=== PATIENT | male | born 1965 | race Caucasian/White ===

== ENCOUNTER 2017-05-10 17:41 | Emergency (ER) | payer OTHER ==
[2017-05-10] MEDS ORDERED: NA CHLORIDE 0.9% 1,000 ML ONE (19:17)
[2017-05-10] MEDS ORDERED: ONDANSETRON 4 MG/2 ML VIAL ONE (19:17)
[2017-05-10 19:22] LABS: Absolute Lymphocytes (CBC) 1.4 K/uL (0.7-4.9); Absolute Monocytes 1.1 K/uL (0.1-1.3); Absolute Neutrophil 5.2 K/uL (1.8-8.0); Basophils % 0.3 % (0-1.3); Eosinophils % 2.7 % (0-4.4); Hematocrit 45.8 % (39.6-49.0); Lymphocytes % 17.7 % (15.3-44.8); MCV 93.1 fL (80-100); MPV 7.7 fL (7.6-11.3); Monocytes % 14.3 % (3.3-12.3); RBC Red Blood Cell Count 4.92 M/uL (4.33-5.43)
[2017-05-10 19:28] LABS: Potassium 4.1 mEq/L (3.6-5.0)
--- NOTE | 2017-05-10 20:22 | ER ---
Nurse's Notes [facility] Name: Kaylie Arevalo Age: 51 yrs Sex: Male : 1965 Arrival Date: 05/10/2017 Time: 17:45 Bed 23 Private MD: Diagnosis: Gastroenteritis Presentation: 05/10 18:03 Presenting complaint: Patient states: Sinus congestion, productive cough with yellow hb sputum, body aches, N/V/D x 3 days. Transition of care: patient was not received from another setting of care. Onset of symptoms was May 08, 2017. Care prior to arrival: None. 18:03 Method Of Arrival: Ambulatory hb 18:03 Acuity: BK 3 hb Historical: - Allergies: 18:07 No Known Allergies; hb - Home Meds: 18:07 Lexapro Oral [Active]; Metformin Oral [Active]; Trulicity subcutaneous subcutaneous hb [Active]; Glipizide Oral [Active]; amlodipine oral [Active]; losartan oral oral [Active]; atorvastatin oral oral [Active]; meloxicam oral oral [Active]; carvedilol 3.125 mg oral tab [Active]; - PMHx: 18:07 Diabetes - NIDDM; Hypertension; Anxiety; hb - PSHx: 18:07 Appendectomy; leg - right; wrist - right; hb - Immunization history:: Adult Immunizations up to date. - Social history:: Smoking status: Patient/guardian denies using tobacco. Screenin:56 Abuse screen: Denies threats or abuse. Nutritional screening: No deficits noted. tl3 Tuberculosis screening: No symptoms or risk factors identified. Fall Risk None identified. Assessment: 19:56 General: Appears uncomfortable, well groomed, well developed, well nourished, Behavior tl3 is calm, cooperative, appropriate for age. Pain: Complains of pain in abdomen cramps, back cramps from vomiting. Neuro: Level of Consciousness is awake, alert, obeys commands, Oriented to person, place, time, situation, Appropriate for age. Cardiovascular: Heart tones S1 S2 present Capillary refill < 3 seconds in bilateral fingers. Respiratory: Airway is patent Trachea midline Respiratory effort is even, unlabored. GI: Reports lower abdominal pain, diarrhea. 19:56 GI: Reports vomiting, since Saturday morning at 6:30 am. : EENT: No signs and/or tl3 symptoms were reported regarding the EENT system. Derm: Skin is intact, Skin is dry, Skin is pale, Skin temperature is cool. Musculoskeletal: No signs and/or symptoms reported regarding the musculoskeletal system. 20:35 Reassessment: No changes from previously documented assessment. Patient and/or family tl3 updated on plan of care and expected duration. Pain level reassessed. Patient is alert, oriented x 3, equal unlabored respirations, skin warm/dry/pink. pt states that he is feeling better. Vital Signs: 18:03 BP 124 / 92; Pulse 101; Resp 20; Temp 98; Pulse Ox 97% on R/A; Weight 117.93 kg; Height hb 6 ft. 1 in. (185.42 cm); Pain 4/10; 20:35 BP 122 / 82; Pulse 88; Resp 16; Pulse Ox 98% on R/A; tl3 18:03 Body Mass Index 34.30 (117.93 kg, 185.42 cm) hb ED Course: 17:45 Patient arrived in ED. rg4 18:03 Triage completed. hb 18:03 Arm band placed on right wrist. hb 18:25 Adis Trivedi PA is PHCP. jr8 18:25 Deyvi Zapata MD is Attending Physician. jr8 18:31 Omayra Marsh RN is Primary Nurse. tl3 19:56 Patient has correct armband on for positive identification. Bed in low position. Call tl3 light in reach. Side rails up X 1. 19:56 No provider procedures requiring assistance completed. Initial lab(s) drawn, by ri, tl3 sent to lab. Inserted saline lock: 22 gauge in right forearm, using aseptic technique. Blood collected. 20:35 IV discontinued, intact, bleeding controlled, No redness/swelling at site. Pressure tl3 dressing applied. Administered Medications: 19:00 Drug: NS 0.9% 1000 ml Route: IV; Rate: 1000 ml; Site: right forearm; tl3 20:00 Follow up: IV Status: Completed infusion; IV Intake: 1000ml tl3 19:00 Drug: Phenergan 12.5 mg Route: IVP; Site: right forearm; tl3 20:24 Follow up: Response: No adverse reaction; Nausea is decreased tl3 Intake: 20:00 IV: 1000ml; Total: 1000ml. tl3 Outcome: 20:21 Discharge ordered by MD. badillo 20:35 Discharged to home tl3 20:35 Condition: good 20:35 Discharge instructions given to patient, Instructed on discharge instructions, medication usage, Demonstrated understanding of instructions, follow-up care, medications, Prescriptions given X 1, stressed importance of good hand washing and fluid intake 20:37 Patient left the ED. tl3 Signatures: Adis Trivedi PA PA jr8 Alem Nye, RN RN Eleanor Conner 4 Omayra Marsh, JAMES RN tl3
--- NOTE | 2017-05-10 20:22 | EDPHYS ---
Physician Documentation [facility] Name: Kaylie Arevalo Age: 51 yrs Sex: Male : 1965 Arrival Date: 05/10/2017 Time: 17:45 Bed 23 Private MD: ED Physician Deyvi Zapata HPI: 05/10 18:44 This 51 yrs old Male presents to ER via Ambulatory with complaints of Flu jr8 Symptoms. 18:44 The patient presents to the emergency department with nausea, vomiting, diarrhea. jr8 Onset: The symptoms/episode began/occurred acutely, 3 day(s) ago. Possible causes: unknown. The symptoms are aggravated by food , The symptoms are alleviated by nothing. Associated signs and symptoms: The patient has no apparent associated signs or symptoms. Severity of symptoms: At their worst the symptoms were moderate in the emergency department the symptoms are unchanged. The patient has not experienced similar symptoms in the past. The patient has not recently seen a physician. Patient stated that he has not been able to stop his n/v/d. Stated that he cannot keep fluids or food down . Historical: - Allergies: 18:07 No Known Allergies; hb - Home Meds: 18:07 Lexapro Oral [Active]; Metformin Oral [Active]; Trulicity subcutaneous subcutaneous hb [Active]; Glipizide Oral [Active]; amlodipine oral [Active]; losartan oral oral [Active]; atorvastatin oral oral [Active]; meloxicam oral oral [Active]; carvedilol 3.125 mg oral tab [Active]; - PMHx: 18:07 Diabetes - NIDDM; Hypertension; Anxiety; hb - PSHx: 18:07 Appendectomy; leg - right; wrist - right; hb - Immunization history:: Adult Immunizations up to date. - Social history:: Smoking status: Patient/guardian denies using tobacco. ROS: 18:44 Eyes: Negative for injury, pain, redness, and discharge, Neck: Negative for injury, jr8 pain, and swelling, Cardiovascular: Negative for chest pain, palpitations, and edema, Back: Negative for injury and pain, MS/Extremity: Negative for injury and deformity, Skin: Negative for injury, rash, and discoloration, Neuro: Negative for headache, weakness, numbness, tingling, and seizure. 18:44 ENT: Positive for rhinorrhea, Negative for drainage from ear(s), ear pain, sore throat, difficulty swallowing, difficulty handling secretions, hoarseness. 18:44 Respiratory: Positive for cough, Negative for dyspnea on exertion, shortness of breath, sputum production, wheezing. 18:44 Abdomen/GI: Positive for nausea, vomiting, and diarrhea, Negative for abdominal pain, abdominal distension, anorexia, dysphagia, hematemesis, black/tarry stool, rectal pain, rectal bleeding, bowel incontinence, flatulence. Exam: 18:44 Eyes: Pupils equal round and reactive to light, extra-ocular motions intact. Lids and jr8 lashes normal. Conjunctiva and sclera are non-icteric and not injected. Cornea within normal limits. Periorbital areas with no swelling, redness, or edema. ENT: Nares patent. No nasal discharge, no septal abnormalities noted. Tympanic membranes are normal and external auditory canals are clear. Oropharynx with no redness, swelling, or masses, exudates, or evidence of obstruction, uvula midline. Mucous membranes moist. Neck: Trachea midline, no thyromegaly or masses palpated, and no cervical lymphadenopathy. Supple, full range of motion without nuchal rigidity, or vertebral point tenderness. No Meningismus. Cardiovascular: Regular rate and rhythm with a normal S1 and S2. No gallops, murmurs, or rubs. Normal PMI, no JVD. No pulse deficits. Respiratory: Lungs have equal breath sounds bilaterally, clear to auscultation and percussion. No rales, rhonchi or wheezes noted. No increased work of breathing, no retractions or nasal flaring. Abdomen/GI: Soft, non-tender, with normal bowel sounds. No distension or tympany. No guarding or rebound. No evidence of tenderness throughout. Back: No spinal tenderness. No costovertebral tenderness. Full range of motion. Skin: Warm, dry with normal turgor. Normal color with no rashes, no lesions, and no evidence of cellulitis. MS/ Extremity: Pulses equal, no cyanosis. Neurovascular intact. Full, normal range of motion. Neuro: Awake and alert, GCS 15, oriented to person, place, time, and situation. Cranial nerves II-XII grossly intact. Motor strength 5/5 in all extremities. Sensory grossly intact. Cerebellar exam normal. Normal gait. Vital Signs: 18:03 BP 124 / 92; Pulse 101; Resp 20; Temp 98; Pulse Ox 97% on R/A; Weight 117.93 kg; Height hb 6 ft. 1 in. (185.42 cm); Pain 4/10; 20:35 BP 122 / 82; Pulse 88; Resp 16; Pulse Ox 98% on R/A; tl3 18:03 Body Mass Index 34.30 (117.93 kg, 185.42 cm) hb MDM: 18:25 Patient medically screened. jr8 20:20 Data reviewed: vital signs, nurses notes, lab test result(s), and as a result, I will jr8 discharge patient. Data interpreted: Pulse oximetry: on room air is 97 %. Interpretation: normal. Counseling: I had a detailed discussion with the patient and/or guardian regarding: the historical points, exam findings, and any diagnostic results supporting the discharge/admit diagnosis, lab results, the need for outpatient follow up, a family practitioner, to return to the emergency department if symptoms worsen or persist or if there are any questions or concerns that arise at home. Response to treatment: the patient's symptoms have markedly improved after treatment. 05/10 18:39 Order name: Flu; Complete Time: 19:30 8 05/10 18:41 Order name: CBC with Diff; Complete Time: 19:23 8 05/10 18:41 Order name: Basic Metabolic Panel; Complete Time: 19:30 8 05/10 18:41 Order name: IV; Complete Time: 20:24 8 05/10 18:41 Order name: Urine Dipstick-Ancillary (obtain specimen); Complete Time: 20:24 [facility] Administered Medications: 19:00 Drug: NS 0.9% 1000 ml Route: IV; Rate: 1000 ml; Site: right forearm; tl3 20:00 Follow up: IV Status: Completed infusion; IV Intake: 1000ml tl3 19:00 Drug: Phenergan 12.5 mg Route: IVP; Site: right forearm; tl3 20:24 Follow up: Response: No adverse reaction; Nausea is decreased tl3 Disposition: 05/10/17 20:21 Discharged to Home. Impression: Gastroenteritis. - Condition is Stable. - Discharge Instructions: Viral Gastroenteritis. - Prescriptions for promethazine 25 mg Oral Tablet - take 1 tablet by ORAL route every 6 hours As needed; 20 tablet. - Medication Reconciliation Form, Thank You Letter, Antibiotic Education, Prescription Opioid Use form. - Follow up: Private Physician; When: 2 - 3 days; Reason: Recheck today's complaints, Continuance of care, Re-evaluation by your physician. - Problem is new. - Symptoms have improved. Addendum: 05/12/2017 06:59 Co-signature as Attending Physician, Deyvi Zapata MD I agree with the assessment and k dr plan of care. Signatures: Dispatcher [employer] [facility] Deyvi Zapata MD MD [facility] Adis Trivedi PA PA jr8 Alem Nye, RN RN Omayra Marsh RN RN tl3
== END 2017-05-10 20:37 | disposition home or self-care (01) ==
LOC: ER 17:41
DX: K52.9 Noninfective gastroenteritis and colitis, unspecified (principal); I10 Essential (primary) hypertension; E11.9 Type 2 diabetes mellitus without complications; F41.9 Anxiety disorder, unspecified; Z79.4 Long term (current) use of insulin
CPT/HCPCS: 36415; 80048; 85025; 87804; 96361; 96374; 99284; J2405; J7030

== ENCOUNTER 2020-05-18 01:25 | Emergency (ER) | payer OTHER ==
--- OUTSIDE RECORDS SUMMARY | 2020-05-18 01:27 | XMS REPORT | Continuity of Care Document ---
:1965 Author Organization [facility] t Address [address] [place] [address] Care Team Providers Name Role Phone Buffy BUSTILLO Attending Clinician Problems This patient has no known problems. Allergies, Adverse Reactions, Alerts This patient has no known allergies or adverse reactions. Medications This patient has no known medications. Procedures This patient has no known procedures. Encounters Start End Encounter Admission Attending Care Care Encounter Source Date/Time Date/Time Type Type Clinicians Facility Department ID 2020-05-09 2020-05-09 Office ADONIS Baer [id number] 14:35:23 15:48:50 Visit Sparkle Pedraza [id number] [place]t [id number] Profangela [id number] [address] Building 2020-05-07 2020-05-07 Refill ADONIS Baer [id number] 00:00:00 00:00:00 Sparkle Pedraza [id number] [place]t [id number] Professio [phone] [address] Building Results This patient has no known results.
--- NOTE | 2020-05-18 02:17 | ER ---
Nurse's Notes [facility] Name: Kaylie Arevalo Age: 54 yrs Sex: Male : 1965 Arrival Date: 05/18/2020 Time: 01:32 Bed 19 Private MD: Diagnosis: Displaced fracture of left tibial tuberosity-tibial plateau fracture;Fall (on) (from) unspecified stairs and steps Presentation: 05/18 01:20 Chief complaint: EMS states: Fall off treadmill, left knee injury. Care prior to sf arrival: Medication(s) given: 100 mcg Fentanyl IVP. Mechanism of Injury: Fall from treadmill onto floor approximately 1.5 feet. Trauma event details: Injury occurred in the [facility], Injury occurred: in a recreational area. Injury occurred: May 18, 2020 Injury occurred at: 00:45. 01:20 Acuity: BK 2 sf 01:20 Method Of Arrival: EMS: [facility] sf 01:20 Coronavirus screen: Client denies travel out of the [place] in the last 14 days. At this sf time, the client does not indicate any symptoms associated with coronavirus-19. Ebola Screen: Patient negative for fever greater than or equal to 101.5 degrees Fahrenheit, and additional compatible Ebola Virus Disease symptoms Patient denies exposure to infectious person. Patient denies travel to an Ebola-affected area in the 21 days before illness onset. No symptoms or risks identified at this time. Initial Sepsis Screen: Does the patient meet any 2 criteria? No. Patient's initial sepsis screen is negative. Does the patient have a suspected source of infection? No. Patient's initial sepsis screen is negative. Risk Assessment: Do you want to hurt yourself or someone else?. Onset of symptoms was May 18, 2020. Trauma Activation: Alert Physician: ED Physician; Name: Seth; Notified At: 01:20; Arrived At: 01:48 Physician: General Surgeon; Name: N/A; Notified At: 01:20; Arrived At: N/A Physician: Radiology; Name: ; Notified At: 01:20; Arrived At: 01:57 Physician: Respiratory; Name: ; Notified At: 01:20; Arrived At: Specialty not needed Physician: Jos; Name: ; Notified At: 01:20; Arrived At: Specialty not needed Historical: - Allergies: 01:50 No Known Allergies; sf - Home Meds: 01:50 metformin 1,000 mg oral tab 1 tab 2 times per day [Active]; Nifedipine ER Oral 30 mg sf twice a day [Active]; Semaglutide 1 mg per week [Active]; Farxiga 5 mg oral tab 1 tab once daily [Active]; carvedilol 25 mg oral tab 1 tab 2 times per day [Active]; trazodone 50 mg Oral tab 1 tab nightly [Active]; atorvastatin 80 mg oral tab 1 tab nightly [Active]; Lexapro 20 mg oral tab 1 tab once daily [Active]; Fioricet Oral 1 tab as needed [Active]; losartan 100 mg oral tab 1 tab once daily [Active]; hydralazine 25 mg Oral tab 50 mg 2 times per day [Active]; - PMHx: 01:50 Anxiety; Diabetes - NIDDM; Hypertension; High Cholesterol; sf - Immunization history: Last tetanus immunization: - up to date. - Family history:: not pertinent. - Social history:: Smoking status: Patient/guardian denies using tobacco. - Social history: Lives with family Speaks fluent [place]. Denies using street drugs, IV drugs, tobacco products, alcohol. Screenin:20 Abuse screen: Denies threats or abuse. Denies injuries from another. Nutritional sf screening: No deficits noted. Tuberculosis screening: No symptoms or risk factors identified. Never had TB. Possible symptoms: None Risk factors: None. Fall risk At risk due to injury, Intervention for positive screen: ED Physician notified, instructed to call for assist when getting up, side rails up. Exposure risk/Travel Screening: None identified. 01:20 Fall Risk Fall in past 12 months (25 points). No secondary diagnosis (0 pts). IV access sf (20 points). Ambulatory Aid- None/Bed Rest/Nurse Assist (0 pts). Gait- Impaired (20 pts.). Mental Status- Oriented to own ability (0 pts). Total Garcia Fall Scale indicates High Risk Score (45 or more points). Fall prevention measures have been instituted. Side Rails Up X 2 Placed Close to Nursing Station. Primary Survey: 01:20 NO uncontrolled hemorrhage observed. A: The patient is alert. Airway: patent. sf Breathing/Chest: Respiratory pattern: regular, Respiratory effort: spontaneous, unlabored, Breath sounds: clear, Chest inspection: symmetrical rise and fall of the chest. Circulation: Pulses: palpable left posterior tibial artery and left dorsalis pedis artery. Skin color: pink. Disability Alert. Exposure/Environment: All clothing and personal items were removed. Forensic evidence collection is not deemed to be indicated at this time. Items placed in patient belonging bag. There is no evidence of uncontrolled external bleeding. Obvious injury(ies) are noted at this time: left knee A warming method has been applied: A warm blanket has been provided to the patient. 02:00 Reassessment Airway Airway Patent Breathing/Chest Respiratory pattern Regular sf Respiratory effort Spontaneous Unlabored Breath sounds Clear Chest inspection Symmetrical Circulation Pulses Palpable Color [place] Disability Alert. Secondary Survey: 01:20 HEENT: No deficits noted. Gastrointestinal: No deficits noted. : No deficits noted. sf Musculoskeletal: Circulation, motion, and sensation intact. Capillary refill < 3 seconds, toes. Bony deformity noted of left knee Swelling present in left knee. Assessment: 01:20 General: Appears uncomfortable, Behavior is calm, cooperative. Pain: Complains of pain sf in left knee Pain currently is 10 out of 10 on a pain scale. Neuro: No deficits noted. Level of Consciousness is awake, alert, Oriented to person, place, time, situation. EENT: No deficits noted. No signs and/or symptoms were reported regarding the EENT system. Cardiovascular: No deficits noted. Capillary refill < 3 seconds toes Pulses are palpable in left posterior tibial artery and left dorsalis pedis artery. Respiratory: No deficits noted. Airway is patent Respiratory effort is even, unlabored, Respiratory pattern is regular, symmetrical. GI: No deficits noted. No signs and/or symptoms were reported involving the gastrointestinal system. : No deficits noted. No signs and/or symptoms were reported regarding the genitourinary system. Derm: Skin is diaphoretic, (post workout). Musculoskeletal: Circulation, motion, and sensation intact. Capillary refill < 3 seconds, toes. Bony deformity noted of left knee Swelling present in left knee Tenderness present in left knee Reports pain in left knee Denies numbness in, left leg. Vital Signs: 01:24 BP 138 / 89; Pulse 90; Resp 22; Temp 97.2; Pulse Ox 98% ; Weight 109.77 kg; Height 6 sf ft. 1 in. (185.42 cm); Pain 10/10; 01:30 BP 135 / 79; Pulse 94; Resp 20; Pulse Ox 96% ; sf 01:45 BP 154 / 81; Pulse 91; Resp 18; Pulse Ox 97% ; sf 02:00 BP 140 / 71; Pulse 87; Resp 18; Pulse Ox 97% ; sf 02:45 BP 146 / 89; Pulse 83; Resp 16; Pulse Ox 96% ; sf 01:24 Body Mass Index 31.93 (109.77 kg, 185.42 cm) sf Kelsey Coma Score: 01:24 Eye Response: spontaneous(4). Verbal Response: oriented(5). Motor Response: obeys sf commands(6). Total: 15. Trauma Score (Adult): 01:24 Eye Response: spontaneous(1); Verbal Response: oriented(1); Motor Response: obeys sf commands(2); Systolic BP: > 89 mm Hg(4); Respiratory Rate: 10 to 29 per min(4); Kelsey Score: 15; Trauma Score: 12 ED Course: 01:20 Patient maintains SpO2 saturation greater than 95% on room air. sf 01:20 Maintain EMS IV. Dressing intact. Good blood return noted. Site clean \T\ dry. Gauge \T\ sf site: 18 GA right AC. 01:20 Thermoregulation: warm blanket given to patient. sf 01:20 Patient has correct armband on for positive identification. Placed in gown. Bed in low sf position. Call light in reach. Side rails up X2. Patient maintains SpO2 saturation greater than 95% on room air. 01:20 Arm band placed on. Affected limb iced. sf 01:32 Patient arrived in ED. mw2 01:35 Luis Benitez RN is Primary Nurse. sf 01:35 Wound care: ice pack applied. sf 01:40 Triage completed. sf 01:44 Isaiah Ann MD is Attending Physician. lea 01:57 X-ray(s) taken. sf 02:01 Knee Left 3 View XRAY Sent. sf 02:13 Mir Bernard MD is Referral Physician. lea 02:21 Knee Left 3 View XRAY In Process Unspecified. EDMS 03:02 No provider procedures requiring assistance completed. IV discontinued, intact, sf bleeding controlled, No redness/swelling at site. Pressure dressing applied. Crutch training done. Knee immobilizer applied on left knee. Administered Medications: 02:15 Drug: NS 0.9% 500 ml Route: IV; Rate: bolus; Site: right antecubital; sf 03:02 Follow up: IV Status: Completed infusion; IV Intake: 500ml sf 02:15 Drug: TORadol 30 mg Route: IVP; Site: right antecubital; sf 02:42 Follow up: Response: No adverse reaction sf 02:15 Drug: morphine 4 mg Route: IVP; Site: right antecubital; sf 02:42 Follow up: Response: No adverse reaction sf 02:15 Drug: Zofran (Ondansetron) 4 mg Route: IVP; Site: right antecubital; sf 02:42 Follow up: Response: No adverse reaction sf Intake: 01:24 PO: 0ml; Total: 0ml. sf 03:02 IV: 500ml; Total: 500ml. sf Outcome: 02:16 Discharge ordered by . lea 03:03 Discharged to home ambulatory, with crutches. sf 03:03 Condition: stable 03:03 Discharge instructions given to patient, Instructed on discharge instructions, follow up and referral plans. medication usage, crutch walking, Demonstrated understanding of instructions, follow-up care, medications, crutch walking, Prescriptions given X 2. 03:03 Patient's length of stay was not longer than 2 hours. sf 03:03 Patient left the ED. sf Signatures: Dispatcher [employer] EDMS Isaiah Ann MD MD cha [place], MyKena mw2 Luis Benitez RN RN sf Corrections: (The following items were deleted from the chart) 02:03 01:20 Trauma Activation: Alert; ED Physician Seth notified at 01:20; sf General Surgeon N/A notified at 01:20, arrived at N/A; Radiology notified at 01:20; Respiratory notified at 01:20; Lab notified at 01:20 sf
--- NOTE | 2020-05-18 02:17 | EDPHYS ---
Physician Documentation [facility] Name: Kaylie Arevalo Age: 54 yrs Sex: Male : 1965 Arrival Date: 05/18/2020 Time: 01:32 Bed 19 Private MD: [facility]IC[facility] Physician Isaiah Ann HPI: 05/18 01:49 This 54 yrs old Male presents to ER via EMS with complaints of left knee. lea 01:49 This 54 yrs old Male presents to ER via EMS with complaints of left knee lea pain, fall off treadmill. 01:49 The patient presents with decreased range of motion, pain, swelling, tenderness. The lea complaints affect the left knee. Context: The problem was sustained at a sports field or court. Onset: The symptoms/episode began/occurred just prior to arrival. Modifying factors: The symptoms are alleviated by elevating leg, remaining still, the symptoms are aggravated by movement, weight bearing, bending knee. Associated signs and symptoms: The patient has no apparent associated signs or symptoms. Treatment prior to arrival includes: elevation of the extremity, icing the affected extremity. Severity of symptoms: At their worst the symptoms were severe, in the emergency department the symptoms have improved, moderately. The patient has not experienced similar symptoms in the past. Historical: - Allergies: 01:50 No Known Allergies; sf - Home Meds: 01:50 metformin 1,000 mg oral tab 1 tab 2 times per day [Active]; Nifedipine ER Oral 30 mg sf twice a day [Active]; Semaglutide 1 mg per week [Active]; Farxiga 5 mg oral tab 1 tab once daily [Active]; carvedilol 25 mg oral tab 1 tab 2 times per day [Active]; trazodone 50 mg Oral tab 1 tab nightly [Active]; atorvastatin 80 mg oral tab 1 tab nightly [Active]; Lexapro 20 mg oral tab 1 tab once daily [Active]; Fioricet Oral 1 tab as needed [Active]; losartan 100 mg oral tab 1 tab once daily [Active]; hydralazine 25 mg Oral tab 50 mg 2 times per day [Active]; - PMHx: 01:50 Anxiety; Diabetes - NIDDM; Hypertension; High Cholesterol; sf - Immunization history: Last tetanus immunization: - up to date. - Family history:: not pertinent. - Social history:: Smoking status: Patient/guardian denies using tobacco. - Social history: Lives with family Speaks fluent [place]. Denies using street drugs, IV drugs, tobacco products, alcohol. ROS: 01:49 Constitutional: Negative for fever, chills, and weight loss, Eyes: Negative for injury, lea pain, redness, and discharge, ENT: Negative for injury, pain, and discharge, Neck: Negative for injury, pain, and swelling, Cardiovascular: Negative for chest pain, palpitations, and edema, Respiratory: Negative for shortness of breath, cough, wheezing, and pleuritic chest pain, Abdomen/GI: Negative for abdominal pain, nausea, vomiting, diarrhea, and constipation, Back: Negative for injury and pain, : Negative for injury, bleeding, discharge, and swelling, Skin: Negative for injury, rash, and discoloration, Neuro: Negative for headache, weakness, numbness, tingling, and seizure, Psych: Negative for depression, anxiety, suicide ideation, homicidal ideation, and hallucinations, Allergy/Immunology: Negative for hives, rash, and allergies, Endocrine: Negative for neck swelling, polydipsia, polyuria, polyphagia, and marked weight changes, Hematologic/Lymphatic: Negative for swollen nodes, abnormal bleeding, and unusual bruising. 01:49 MS/extremity: Positive for decreased range of motion, pain, swelling, tenderness, of the left knee. Exam: 01:49 Constitutional: This is a well developed, well nourished patient who is awake, alert, lea and in no acute distress. Head/Face: Normocephalic, atraumatic. Eyes: Pupils equal round and reactive to light, extra-ocular motions intact. Lids and lashes normal. Conjunctiva and sclera are non-icteric and not injected. Cornea within normal limits. Periorbital areas with no swelling, redness, or edema. ENT: Nares patent. No nasal discharge, no septal abnormalities noted. Tympanic membranes are normal and external auditory canals are clear. Oropharynx with no redness, swelling, or masses, exudates, or evidence of obstruction, uvula midline. Mucous membranes moist. Neck: Trachea midline, no thyromegaly or masses palpated, and no cervical lymphadenopathy. Supple, full range of motion without nuchal rigidity, or vertebral point tenderness. No Meningismus. Chest/axilla: Normal chest wall appearance and motion. Nontender with no deformity. No lesions are appreciated. Cardiovascular: Regular rate and rhythm with a normal S1 and S2. No gallops, murmurs, or rubs. Normal PMI, no JVD. No pulse deficits. Respiratory: Lungs have equal breath sounds bilaterally, clear to auscultation and percussion. No rales, rhonchi or wheezes noted. No increased work of breathing, no retractions or nasal flaring. Abdomen/GI: Soft, non-tender, with normal bowel sounds. No distension or tympany. No guarding or rebound. No evidence of tenderness throughout. Back: No spinal tenderness. No costovertebral tenderness. Full range of motion. Male : Normal genitalia with no discharge or lesions. Skin: Warm, dry with normal turgor. Normal color with no rashes, no lesions, and no evidence of cellulitis. Neuro: Awake and alert, GCS 15, oriented to person, place, time, and situation. Cranial nerves II-XII grossly intact. Motor strength 5/5 in all extremities. Sensory grossly intact. Cerebellar exam normal. Normal gait. Psych: Awake, alert, with orientation to person, place and time. Behavior, mood, and affect are within normal limits. 01:49 Musculoskeletal/extremity: Extremities: decreased ROM, pain, swelling, tenderness, ROM: limited active range of motion due to pain, limited passive range of motion due to pain, Circulation is intact in all extremities. Sensation intact. Compartment Syndrome exam of affected extremity: is normal. DVT Exam: pain, swelling, that is moderate, of the left leg, of the left knee. Vital Signs: 01:24 BP 138 / 89; Pulse 90; Resp 22; Temp 97.2; Pulse Ox 98% ; Weight 109.77 kg; Height 6 sf ft. 1 in. (185.42 cm); Pain 10/10; 01:30 BP 135 / 79; Pulse 94; Resp 20; Pulse Ox 96% ; sf 01:45 BP 154 / 81; Pulse 91; Resp 18; Pulse Ox 97% ; sf 02:00 BP 140 / 71; Pulse 87; Resp 18; Pulse Ox 97% ; sf 02:45 BP 146 / 89; Pulse 83; Resp 16; Pulse Ox 96% ; sf 01:24 Body Mass Index 31.93 (109.77 kg, 185.42 cm) sf [place] Coma Score: 01:24 Eye Response: spontaneous(4). Verbal Response: oriented(5). Motor Response: obeys sf commands(6). Total: 15. Trauma Score (Adult): 01:24 Eye Response: spontaneous(1); Verbal Response: oriented(1); Motor Response: obeys sf commands(2); Systolic BP: > 89 mm Hg(4); Respiratory Rate: 10 to 29 per min(4); [place] Score: 15; Trauma Score: 12 MDM: 01:[address] [facility] [place] [facility] 01:55 Differential diagnosis: closed fracture, contusion, tendonitis. Data reviewed: vital lea signs, nurses notes, radiologic studies, plain films. Data interpreted: patient monitor: not applicable for this patient encounter. rate is 85 beats/min, rhythm is regular. Test interpretation: by ED physician or midlevel provider: plain radiologic studies. Counseling: I had a detailed discussion with the patient and/or guardian regarding: the historical points, exam findings, and any diagnostic results supporting the discharge/admit diagnosis, lab results, radiology results, the need for outpatient follow up, for definitive care, a orthopedic surgeon. 05/18 01:49 Order name: Knee Left [address] [facility] [place] 05/18 01:49 Order name: Knee Immobilizer; Complete Time: 03:02 [facility] 05/18 01:49 Order name: Crutches; Complete Time: 03:02 [facility] 05/18 01:49 Order name: Ice pack; Complete Time: 02:01 [facility] 05/18 01:49 Order name: IV Saline Lock - Large Bore; Complete Time: 02:01 [facility] Administered Medications: 02:15 Drug: NS 0.9% 500 ml Route: IV; Rate: bolus; Site: right antecubital; sf 03:02 Follow up: IV Status: Completed infusion; IV Intake: 500ml sf 02:15 Drug: TORadol 30 mg Route: IVP; Site: right antecubital; sf 02:42 Follow up: Response: No adverse reaction sf 02:15 Drug: morphine 4 mg Route: IVP; Site: right antecubital; sf 02:42 Follow up: Response: No adverse reaction sf 02:15 Drug: Zofran (Ondansetron) 4 mg Route: IVP; Site: right antecubital; sf 02:42 Follow up: Response: No adverse reaction sf Disposition: 05/18/20 02:16 Discharged to Home. Impression: Displaced fracture of left tibial tuberosity - tibial plateau fracture, Fall (on) (from) unspecified stairs and steps. - Condition is Stable. - Discharge Instructions: Fall Prevention in the Home, Hypertension, Nondisplaced Tibial Plateau Fracture, Hypertension, [id number], Fall Prevention in the Home, [id number], Tibial Fracture, Adult, [id number], Type 2 Diabetes Mellitus, Self Care, Adult, [id number]. - Prescriptions for Ibuprofen 600 mg Oral Tablet - take 1 tablet by ORAL route every 6 hours As needed take with food; 20 tablet. Tylenol- Codeine #3 300-30 mg Oral Tablet - take 2 tablet by ORAL route every 4-6 hours As needed; 30 tablet. - Medication Reconciliation Form, Thank You Letter, Antibiotic Education, Prescription Opioid Use form. - Follow up: Mir Bernard MD; When: 1 - 2 days; Reason: Recheck today's complaints, Re-evaluation by your physician. - Problem is new. - Symptoms have improved. Signatures: Dispatcher [employer] EDIsaiah Rey MD MD cha Fitzpatrick, Steven RN RN sf Corrections: (The following items were deleted from the chart) 03:03 02:16 05/18/2020 02:16 Discharged to Home. Impression: Displaced fracture of left sf tibial tuberosity - tibial plateau fracture; Fall (on) (from) unspecified stairs and steps. Condition is Stable. Forms are Medication Reconciliation Form, Thank You Letter, Antibiotic Education, Prescription Opioid Use. Follow up: Mir Bernard; When: 1 - 2 days; Reason: Recheck today's complaints, Re-evaluation by your physician. Problem is new. Symptoms have improved. lea
[2020-05-18] MEDS ORDERED: ONDANSETRON 4 MG/2 ML VIAL ONE (02:28)
[2020-05-18] MEDS ORDERED: KETOROLAC 30 MG/ML INJ ONE (02:28)
[2020-05-18] MEDS ORDERED: MORPHINE 4 MG/ML SYR ONE (02:28)
[2020-05-18] MEDS ORDERED: NA CHLORIDE 0.9% 500 ML ONE (02:29)
[2020-05-18 03:27] VITALS: O2SAT 97
[2020-05-18 03:29] VITALS: BP 140/71
--- NOTE | 2020-05-18 07:49 | RAD REPORT ---
EXAM DESCRIPTION: RAD - Knee Left 3 View - 05/18/2020 2:21 am CLINICAL HISTORY: Left knee pain status post injury FINDINGS: Mildly depressed fracture lateral tibial plateau extends 6 centimeters inferiorly. Oblique lucency is present within the medial tibial plateau may represent an additional nondisplaced fracture. No dislocation
== END 2020-05-18 03:03 | disposition home or self-care (01) ==
LOC: ER 01:25
PROC: 2W3MX1Z Immobilization of Left Lower Extremity using Splint (ICD-10-PCS; principal; 2020-05-18)
DX: S82.152A Displaced fracture of left tibial tuberosity, initial encounter for closed fracture (principal); W31.89XA Contact with other specified machinery, initial encounter; Y93.A1 Activity, exercise machines primarily for cardiorespiratory conditioning; Y92.9 Unspecified place or not applicable; I10 Essential (primary) hypertension; E11.9 Type 2 diabetes mellitus without complications; F41.9 Anxiety disorder, unspecified
CPT/HCPCS: 73562; 29505; J7040; J2405; 96361; 96374; 96375; 99284; G0390

== ENCOUNTER 2021-09-30 15:36 | Emergency (ER) | payer BC, OTHER ==
--- OUTSIDE RECORDS SUMMARY | 2021-09-30 15:39 | XMS REPORT | Continuity of Care Document ---
:1965 Author Organization [facility] t Address [address] [place] [address] Care Team Providers Name Role Phone Asked, No Pcp Primary Care Physician Unavailable Sparkle Baer MD Attending Clinician Braulio Orozco Attending Clinician Unavailable DIANA SIDHU Attending Clinician Unavailable Raphael Manrique Attending Clinician Unavailable Maria Teresa Ross RN M Attending Clinician Karri Gonzalez MD Attending Clinician Guera Diehl MD Attending Clinician Jonathan Field Attending Clinician Huebr Gonzales Attending Clinician Physician, No Primary or Family Admitting Clinician Unavaila ble UNDEFINED Admitting Clinician Unavailable Raphael Manrique Admitting Clinician Unavailable Guera Diehl MD Admitting Clinician Payers Payer Name Policy Type Policy Number Effective Date Expiration Date S ource Problems Condition Condition Condition Status Onset Resolution Last Treating Co mments Source Name Details Category Date Date Treatment Clinician Date PNA PNA Disease Active Univers (pneumonia (pneumonia 7-11 it y of ) ) 00:00: [place] [facility] Hypertensi Hypertensi Disease Active U nivers ve urgency ve urgency 1-27 it y of 00:00: [place] [facility] Dyslipidem Dyslipidem Disease Active U nivers ia ia 3-15 ity of 00:00: [place] [facility] Atypical Atypical Disease Active Unive rs chest pain chest pain 3-14 it y of 00:00: [place] [facility] 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 2 ed type 2 4- ity of diabetes diabetes 00:00: [place] mellitus mellitus 00 Medica l with with 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 y Hypogonadi Hypogonadi Disease Active U nivers sm in male sm in male 9-12 it y of 00:00: [place] [facility] Cushingoid Cushingoid Disease Active U nivers facies facies 9-12 ity of 00:00: [place] [facility] Chest pain Chest pain Disease Active U nivers of of 3-29 ity of uncertain uncertain 00:00[place] etiology 00 Medica [place] Branch Obesity Obesity Disease Active Univers 3-29 ity of 00:00: [place] [facility] TERRIE on TERRIE on Disease Active Univers CPAP CPAP 3-29 ity of 00:00: [place] [facility] Diabetes Diabetes Disease Active Overview: Un thor mellitus mellitus 1-09 Formattin ity of type 2, type 2, 00:00: g of this [place] uncontroll uncontroll 00 note Me dical ed, ed, might be Branch without without different complicati complicati from the ons ons original. 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 Essential Essential Disease Active Uni vers hypertensi hypertensi 1-09 it y of on on 00:00: [place] [facility] HLD HLD Disease Active Univers (hyperlipi (hyperlipi 1-09 it y of demia) demia) 00:00: [place] [facility] Allergies, Adverse Reactions, Alerts Allergy Allergy Status Severity Reaction(s) Onset Inactive Treating Comm ents Source Name Type Date Date Clinician No Known DA Active U [facility] Allergie 09-01 Clear s 00:00: [place] 00 [facility] No Known DA Active U [facility] Allergie 09-01 Clear s 00:00: [place] 00 [facility] Social History Social Habit Start Date Stop Date Quantity Comments Source Alcohol intake 2021-03-10 2021-03-10 Current University of 00:00:00 00:00:00 non-drinker of [facility] alcohol Branch (finding) Tobacco use and 2018-11-05 2018-11-05 Current user Univers ity of exposure 00:00:00 00:00:00 [facility] Tobacco Comment 2015-05-10 2015-05-10 cigars Universit y of 00:00:00 00:00:00 [facility] Sex Ass[birth year] At [birth year] [facility] 00:00:00 00:00:00 Smoking Status Start Date Stop Date Source Tobacco smoking [facility] consumption unknown Former smoker 2018-11-05 00:00:00 2018-11-05 [facility] [place] 00:00:00 [facility] Branch Medications Ordered Filled Start Stop Current Ordering Indication Dosage Frequency Signature Comments Components Source Medication Medication Date Date Medication? Clinician (SIG) Name Name SUNSHINE Montes Yes [id number] TAKE ONE Univers mg tablet 5-30 TABLET BY ity o f 00:00: MOUTH DAILY Medical Branch FREESTYLE Yes 1{each} Apply 1 Un thor LAZ 14 3-13 Each to ity of DAY SENSOR 00:00: skin every [place] Kit 00 14 Medical (fourteen) Branch days. Dx E11.29 METFORMIN 2020-02 Yes [id number] TAKE ONE Univers 1,000 mg 1-22 TABLET BY ity of tablet 00:00: MOUTH 00 TWICE A Medical DAY WITH Branch MEALS FENOFIBRATE 2020-02 Yes [id number] TAKE ONE Univers 160 mg 1-17 TABLET BY ity of tablet 00:00: MOUTH DAILY Medical Branch Blood 2020-02 Yes [id number] Use as Univers Pressure 0-04 directed ity of Monitor Kit 00:00: Medical Branch dapaglifloz 2020-02- No [id number] 10mg Take 1 Univers in 0-04 05-30 tablet by ity of (FARXIGA) 00:00: 00:00 mouth [place] 10 mg 00 :00 daily. Medical tablet Branch OZEMPIC 1 Yes DIAL AND Univ ers mg/dose (4 9-23 INJECT ity of mg/3 mL) 00:00: UNDER THE [place] PnIj 00 SKIN 1 MG Medical WEEKLY Branch escitalopra Yes Take by Uni vers m oxalate 7-20 mouth ity of (LEXAPRO 17:24: daily. [place] ORAL) 14 Medical Branch FREESTYLE Yes USE TO Univer s LAZ 14 4-22 MONITOR ity of DAY READER 00:00: BLOOD [facility] 00 GLUCOSE 3 Medical TO 4 TIMES Branch DAILY pentazocine Yes [id number] 1{tbl} Take 1 Un thor -naloxone 4-07 tablet by ity o f 50-0.5 mg 00:00: mouth [place] tablet 00 every 4 Medical (four) Branch hours as needed for Pain. Indication s: acute pain losartan Yes [id number] 50mg Take 0.5 Univers 100 mg 1-29 tablets by ity of tablet 00:00: mouth [place] 00 daily. Medical Branch hydrALAZINE Yes [id number] 50mg Take 2 Univers 25 mg 1-29 tablets by ity of tablet 00:00: mouth 2 [place] 00 (two) Medical times Branch daily. atorvastati 2019-02 Yes [id number] 80mg Take 1 Univers n 80 mg 2-03 tablet by ity of tablet 00:00: mouth at [place] [address] bedtime. Medical Branch carvedilol Yes [id number] 12.5mg Take 0.5 Univers 25 mg 1-08 tablets by ity of tablet 00:00: mouth 2 [place] [address] (two) Medical times Branch daily with meals. Immunizations Ordered Filled Immunization Date Status Comments [facility] Immunization Name Name Influenza Virus 2018-01-13 Completed Universit y of Vaccine [place] .5 mL 00:00:00 [facility] IM 6+ MO Branch Procedures Procedure Date / Time Performed Performing Clinician Alex e XR CHEST 2 VW 2020-11-01 16:28:00 Diana Sidhu [facility] Plan of Care Planned Activity Planned Date Details Comments Source Future Scheduled 2021-03-14 COVID-19 VACCINE (1) Met [facility] Test 19:08:41 [code = COVID-19 VACCINE (1)] Future Scheduled 2021-03-14 Hepatitis C screening [facility] Test 19:08:41 (procedure) [code = 700232489] Future Scheduled 2021-03-14 COLONOSCOPY SCREENING [facility] Test 19:08:41 [code = COLONOSCOPY SCREENING] Future Scheduled 2021-03-14 SHINGLES VACCINES [facility] Test 19:08:41 (#1) [code = SHINGLES VACCINES (#1)] Future Scheduled 2021-03-14 INFLUENZA VACCINE [facility] Test 19:08:41 [code = INFLUENZA VACCINE] Encounters Start End Encounter Admission Attending Care Care Encounter Source Date/Time Date/Time Type Type Clinicians Facility Department ID 2021-07-10 2021-07-10 Eric Baer [facility] [id number] [facility] 00:00:00 00:00:00 [place] 350.1.13.10 it y of [place] 4.2.7.2.686 Javi as DIANA?BLEA [id number] [address] MEDICAL OFFICE BUILDING 2021-03-15 2021-03-15 Outpatient Orozco, HCACL LABO [id number] [facility] 02:06:00 02:06:00 Braulio Sesay [facility] 2021-03-14 2021-03-14 Emergency EM Orozco, HCAPM АНДРЕЙ [id number] [facility] 12:29:00 17:30:00 Braulio Marquez [facility] 2020-11-01 2020-11-01 [facility] 1.2.840.1 [id number] [place] 00:00:00 00:00:00 Encounter DIANA [id number] [address] .3.129171 .8 2020-11-01 2020-11-01 Travel 1.2.840.1 1.2.918.808 [id number] [facility] 00:00:00 00:00:[address] 3.430.2.7 0.2.7.3.698 Ho spita .3.752949 084.8 l .8 2020-11-01 2020-11-01 Transcribe Thea, 1.2.840.1 [id number] Methodi 00:00:00 00:00:00 Orders Diana [place] [address]19.1.[address] 3.430.2.7 Hospit a .3.874372 l .8 2020-09-01 2020-09-11 Inpatient EM Burton HCAPM INTE.02 [id number] [facility] 19:41:00 16:55:00 Ol[place] 78 [facility] 2020-09-01 2020-09-01 Outpatient CORAZON ManriqueCL LABO [id number] [facility] 20:56:00 20:56:00 Oladipo 12 [facility] 2020-08-31 2020-08-31 Transition Candice Ross 1.2.840.114 [id number] 00:00:00 00:00:00 of Care Maria Teresa Malave [address] 4.2.7.2.686 [id number] 2020-08-21 2020-08-30 Hospital Karri Gonzalez [facility] 1.2.840.1 14 [id number] 17:15:00 17:23:00 Encounter Guera Diehl [facility] 350.1.13.10 League 4.2.7.2.686 [facility] [id number] [address] ([facility]) 2020-07-29 2020-07-29 Telephone Field, [facility] 1.2.036.481 [id number] 00:00:00 00:00:00 Jonathan PANCHAL 350.1.13.10 CARE 4.2.7.2.686 PAVILLION [id number] 2020-07-02 2020-07-02 Eric Baer [facility] 1.2.840.114 [id number] 00:00:00 00:00:00 Sparkle Pedraza 350.1.13.10 [place] 4.2.7.2.686 Professio [id number] [facility] 220 [facility] 2020-06-29 2020-06-29 [facility] 1.2.840.114 [id number] 16:30:48 23:59:00 Encounter Huber Fraga 350.1.13.10 Surgical 4.2.7.2.686 Specialti [phone] es [address] [place] 2020-06-29 2020-06-29 Office [facility] 1.2.840.114 [id number] 16:13:37 16:28:37 Visit Huber Fraga 350.1.13.10 Surgical 4.2.7.2.686 Specialti [id number] es 198 [place] 2020-06-29 2020-06-29 Letter [facility] 1.2.840.114 [id number] 00:00:00 00:00:00 (Out) Huber Fraga 350.1.13.10 Surgical 4.2.7.2.686 Specialti [id number] es 198 [place] Results Test Description Test Time Test Comments Results Result [facility] Comments - CT ABD PELVIS 2021-03-14 W/CONT 16:22:[address] [facility] : 1965 Sex: M Name: STEPHON AREVALO [facility] : 1965 Age/S: 55 / M [address] [place] Unit #: [id number] Loc: [place] [address] Phys: Braulio Orozco MD Acct: [id number] Dis Date: Status: REG ER PHONE #: [phone] Exam Date: 03/14/2021 1534 FAX #: Reason: prostatitis, failed outpt treatment EXAMS: CPT: [id number] CT ABD PELVIS W/CONT 21237 EXAMINATION: - CT ABD PELVIS W/CONT. LOCATION: B2. HISTORY: prostatitis, failed outpt treatment. COMPARISON: None. Count of previous CT and cardiac nuclear medicine studies for the past 12 months: 2. TECHNIQUE: CT abdomen and pelvis was performed with the use of IV contrast (100 mL Isovue 300). Sagittal and coronal reconstructed images were available for review. This exam was performed according to our departmental dose-optimization program, which includes automated exposure control, adjustment of the mA and/or kV according to patient size, and/or use of iterative reconstruction technique. FINDINGS: Lower chest: Mild groundglass opacities are seen in bilateral lung bases. Heart size is normal. Abdomen: 1.0 cm exophytic left renal cyst is present. The liver, gallbladder, fingers, spleen, bilateral adrenal glands, and right kidney appear within normal limits. There is no evidence of bowel obstruction. The appendix is not visualized. No pneumoperitoneum or ascites is identified. There is no mesenteric or retroperitoneal adenopathy. Pelvis: The urinary bladder appears normal. The prostate gland is normal in size. No prostatic fluid collections are identified. The left penile corpus cavernosum is asymmetrically enlarged with 7.1 x 2.1 cm area of enhancement. No inguinal adenopathy is identified. Bones/soft tissues: 2.8 cm lucency is seen at T8 with a corduroy appearance suggestive of a hemangioma. L4 limbus vertebra is noted. No acute osseous abnormality is identified. No aggressive lytic or blastic lesions are seen. IMPRESSION: PAGE 1 Signed Report (CONTINUED) Name: STEPHON AREVALO [facility] : 1965 Age/S: 55 / M [address] [facility] [place] Unit #: [id number] Loc: [place] [address] Phys: Braulio Orozco MD Acct: [id number] Dis Date: Status: REG ER PHONE #: [phone] Exam Date: 03/14/2021 7433 FAX #: Reason: prostatitis, failed outpt treatment EXAMS: CPT: [id number] CT ABD PELVIS W/CONT 92993 (Continued) Asymmetrically enlarged left penile corpus cavernosum with 7.1 x 2.1 cm region of enhancement, likely representing focal myositis in a patient with history of prostatitis. Mild groundglass opacities in bilateral lung bases consistent with an inflammatory/infectiou s process. at 1622 Reported and signed by: Jose L Garcia M.D. CC: Braulio Orozco MD Technologist:Any Naik, RT(R) CTDI: DLP: Trnscb Date/Time: 03/14/2021 (0982) [email or web address] Orig Print D/T: S: 03/14/2021 (1741) PAGE 2 Signed Report COMPREHENSIVE METABOLIC PANEL 2021-03-14 14:59:00 Test Item Value Reference Range Interpretation Comme nts SODIUM (test code = NA) 140 mmol/L 134-147 N POTASSIUM (test code = K) 4.0 mmol/L 3.4-5.0 N CHLORIDE (test code = CL) 107 mmol/L 100-108 N CARBON DIOXIDE (test code = CO2) 26 mmol/L 21-32 N ANION GAP (test code = GAP) 7.0 GAP calc 4.0-15.0 N GLUCOSE (test code = GLU) 91 MG/DL 70-110 N BLOOD UREA NITROGEN (test code = BUN) 24 MG/DL 7-18 H GLOMERULAR FILTRATION RATE (test code = GFR) 48 estGFR >60 L CREATININE (test code = CREAT) 1.6 MG/DL 0.8-1.3 H TOTAL PROTEIN (test code = PROT) 7.9 G/DL 6.4-8.2 N ALBUMIN (test code = ALB) 3.3 G/DL 3.4-5.0 L GLOBULIN (test code = GLOB) 4.6 GM/dL ALBUMIN/GLOBULIN RATIO (test code = A/G) 0.7 RATIO 1.2-2.2 L CALCIUM (test code = CA) 9.4 MG/DL 8.5-10.1 N BILIRUBIN TOTAL (test code = BILT) 0.30 MG/DL 0.2-1.2 N SGOT/AST (test code = AST) 18 Unit/L 15-37 N SGPT/ALT (test code = ALT) 33 Unit/L 12-78 N ALKALINE PHOSPHATASE TOTAL (test code = ALKP) 48 Unit/L 50-136 L CBC W/AUTO [id number] 14:32:00 Test Item Value Reference Range Interpretation Comments WHITE BLOOD CELL (test code = 9.1 K/mm3 3.5-11.0 N WBC) RED BLOOD CELL (test code = 4.51 M/mm3 4.70-6.10 L RBC) HEMOGLOBIN (test code = HGB) 14.3 G/DL 12.3-15.9 N HEMATOCRIT (test code = HCT) 42.3 % 35.8-46.7 N MEAN CELL VOLUME (test code = 93.8 Fl 86.3-98.9 N MCV) MEAN CELL HGB (test code = MCH) 31.7 pg 28.9-34.4 N MEAN CELL HGB CONCETRATION 33.8 G/DL 32.1-34.5 N (test code = MCHC) RED CELL DISTRIBUTION WIDTH 12.7 SD 11.5-14.5 N (test code = RDW) PLATELET COUNT (test code = 329 K/mm3 150-450 N PLT) MEAN PLATELET VOLUME (test code 9.10 fL 7.0-9.6 N = MPV) NEUTROPHIL % (test code = NT%) 68.7 % 40-76 N IMMATURE GRANULOCYTE % (test 0.2 % 0.0-5.0 N code = IG%) LYMPHOCYTE % (test code = LY%) 21.4 % 20.5-51.1 N MONOCYTE % (test code = MO%) 8.5 % 1.7-9.3 N EOSINOPHIL % (test code = EO%) 1.0 % 0.0-6.0 N BASOPHIL % (test code = BA%) 0.2 % 0.0-2.0 N NUCLEATED RBC % (test code = 0.0 /100WBC% 0.0-1.0 N NRBC%) NEUTROPHIL # (test code = NT#) 6.3 K/mm3 1.8-7.6 N IMMATURE GRANULOCYTE # (test 0.02 x10 3/uL 0.00-0.03 N code = IG#) LYMPHOCYTE # (test code = LY#) 2.0 K/mm3 0.6-3.0 N MONOCYTE # (test code = MO#) 0.8 K/mm3 0.2-1.5 N EOSINOPHIL # (test code = EO#) 0.1 K/mm3 0.0-0.4 N BASOPHIL # (test code = BA#) 0.0 K/mm3 0.0-0.2 N NUCLEATED RBC # (test code = 0.0 K/mm3 0.00-0.01 N NRBC#) MANUAL DIFF REQUIRED (test code NO DIFF/SCN CRITERIA = MDIFF) UA RFLX MICR CULT IF [id number] 13:43:00 Test Item Value Reference Range Interpretation Comments UA COLOR (test code = YELLOW discript YEL/STRAW COLU) UA APPEARANCE (test code HAZY discript CLEAR A = APPU) UA GLUCOSE DIPSTICK (test 3+ mg/dL NEG code = DGLUU) UA BILIRUBIN DIPSTICK NEGATIVE mg/dL NEG (test code = BILU) UA KETONE DIPSTICK (test NEGATIVE mg/dL NEG code = KETU) UA SPECIFIC GRAVITY (test 1.025 SG 1.005-1.030 code = SGU) UA BLOOD DIPSTICK (test NEGATIVE mg/DL NEG code = DESIRE) UA PH DIPSTICK (test code 6.0 pH UNITS 5.0-7.0 = JACQUELYN) UA PROTEIN DIPSTICK (test 3+ mg/dL NEG A code = PROU) UA UROBILINIOGEN DIPSTICK 0.2 mg/dL <2.0 (test code = URO) UA NITRITE DIPSTICK (test NEGATIVE SCREEN NEG code = CLEOPATRA) UA LEUKOCYTE ESTERASE NEGATIVE Leuk/mcL NEGATIVE DIPSTICK (test code = LEUU) UA CULTURE NEEDED? (test NO, WBC<10 Criteria Culture CHK code = UACULT) UA WBC (test code = WBCU) 1-3 #WBC/HPF 0-3 UA RBC (test code = RBCU) 0-1 #RBC/HPF 0-3 UA BACTERIA (test code = TRACE /HPF NONE-TRACE BACU) UA SQUAMOUS CELLS (test TRACE /HPF NONE code = SQU) Indication for culture: Dysuria/FrequencyGLUCOSE BEDSIDE [id number] 11:47:00 Test Item Value Reference Range Interpretation Comments GLUCOSE BEDSIDE TESTING (test code 137 mg/dL 70-110 H = GLUBED) GLUCOSE BEDSIDE [id number] 07:52:00 Test Item Value Reference Range Interpretation Comments GLUCOSE BEDSIDE TESTING (test code 121 mg/dL 70-110 H = GLUBED) GLUCOSE BEDSIDE [id number] 03:53:00 Test Item Value Reference Range Interpretation Comments GLUCOSE BEDSIDE TESTING (test code 105 mg/dL 70-110 N = GLUBED) GLUCOSE BEDSIDE [id number] 20:50:00 Test Item Value Reference Range Interpretation Comments GLUCOSE BEDSIDE TESTING (test code 374 mg/dL 70-110 H = GLUBED) GLUCOSE BEDSIDE [id number] 16:32:00 Test Item Value Reference Range Interpretation Comments GLUCOSE BEDSIDE TESTING (test code 288 mg/dL 70-110 H = GLUBED) GLUCOSE BEDSIDE [id number] 11:33:00 Test Item Value Reference Range Interpretation Comments GLUCOSE BEDSIDE TESTING (test code = 98 mg/dL 70-110 N GLUBED) GLUCOSE BEDSIDE [id number] 08:05:00 Test Item Value Reference Range Interpretation Comments GLUCOSE BEDSIDE TESTING (test code 150 mg/dL 70-110 H = GLUBED) GLUCOSE BEDSIDE [id number] 03:27:00 Test Item Value Reference Range Interpretation Comments GLUCOSE BEDSIDE TESTING (test code = 95 mg/dL 70-110 N GLUBED) GLUCOSE BEDSIDE [id number] 21:03:00 Test Item Value Reference Range Interpretation Comments GLUCOSE BEDSIDE TESTING (test code 255 mg/dL 70-110 H = GLUBED) GLUCOSE BEDSIDE [id number] 16:08:00 Test Item Value Reference Range Interpretation Comments GLUCOSE BEDSIDE TESTING (test code 237 mg/dL 70-110 H = GLUBED) GLUCOSE BEDSIDE [id number] 12:09:00 Test Item Value Reference Range Interpretation Comments GLUCOSE BEDSIDE TESTING (test code 205 mg/dL 70-110 H = GLUBED) GLUCOSE BEDSIDE [id number] 08:36:00 Test Item Value Reference Range Interpretation Comments GLUCOSE BEDSIDE TESTING (test code = 85 mg/dL 70-110 N GLUBED) GLUCOSE BEDSIDE [id number] 03:46:00 Test Item Value Reference Range Interpretation Comments GLUCOSE BEDSIDE TESTING (test code = 77 mg/dL 70-110 N GLUBED) GLUCOSE BEDSIDE [id number] 20:17:00 Test Item Value Reference Range Interpretation Comments GLUCOSE BEDSIDE TESTING (test code 187 mg/dL 70-110 H = GLUBED) GLUCOSE BEDSIDE [id number] 16:51:00 Test Item Value Reference Range Interpretation Comments GLUCOSE BEDSIDE TESTING (test code 279 mg/dL 70-110 H = GLUBED) - CTA CHEST FOR [id number] 14:29:[address] [facility] [address] : 1965 Sex: M Name: STEPHON AREVALO [facility] : 1965 Age/S: 55 / M [address] [place] Unit #: [id number] Loc: [place] [address] Phys: Raphael Manrique MD Acct: [id number] Dis Date: Status: ADM IN PHONE #: [phone] Exam Date: 09/08/2020 1346 FAX #: Reason: evaluate for PE EXAMS: CPT: [id number] [place] [address] Indication:evaluate for PE Covid. TECHNIQUE: CT of the chest is obtained with intravenous contrast using the angiography protocol. Approximately 100 mL of Isovue was administered. Sagittal and coronal reconstruction images were obtained. CTA maximum intensity projections of the pulmonary arteries in oblique planes are also reviewed. COMPARISON: Noncontrast Chest CT study dated 09/02/2020 Location: T18 CT Dose: 796 mGy-centimeters; iterative dose reduction technique was utilized. FINDINGS: Thethyroid gland is unremarkable. No significant supraclavicular or axillary lymphadenopathy is seen. There are extensive parenchymal patchy consolidations within the upper and lower lung aiken. There isno significant pleural effusion or pneumothorax. The mediastinal structures are unremarkable. No mediastinal adenopathy is identified. No mediastinal mass is identified. The hilar structures are unremarkable. The thoracic aorta is unremarkable. There is no evidence of an aortic aneurysm. No aortic dissection is identified. The pulmonary arteries are unremarkable. No pulmonary emboli are identified. The visualized upper abdominal structures are unremarkable. The visualized bony structures are unremarkable. IMPRESSION: 1. No evidence of PE. 2. Extensive consolidations are again seen in the bilateral upper and lower lung distributions, consistent with multifocal pneumonia/pneumonitis. PAGE 1 Signed Report (CONTINUED) Name: STEPHON AREVALO : 1965 Age/S: 55 / M [address] [address] [place] Unit #: [id number] Loc: [place] [address] Phys: Raphael Manrique MD Acct: [id number] Dis Date: Status:ADM IN PHONE #: [phone] Exam Date: 09/08/2020 1346 FAX #: Reason: evaluate for PE EXAMS: CPT: [id number] [place] [address] (Continued) at 1429 Reported and signed by: Win Reyes M.D. CC: Raphael Manrique MD Technologist:Gadiel Goddard, RT(R)(CT) CTDI: DLP: Trnscb Date/Time: 09/08/2020 (1429) [email or web address] Orig Print D/T: S:09/08/2020 (1433) PAGE 2 Signed ReportGLUCOSE BEDSIDE [id number] 13:55:00 Test Item Value Reference Range Interpretation Comments GLUCOSE BEDSIDE TESTING (test code 207 mg/dL 70-110 H = GLUBED) GLUCOSE BEDSIDE [id number] 08:02:00 Test Item Value Reference Range Interpretation Comments GLUCOSE BEDSIDE TESTING (test code 128 mg/dL 70-110 H = GLUBED) GLUCOSE BEDSIDE [id number] 04:11:00 Test Item Value Reference Range Interpretation Comments GLUCOSE BEDSIDE TESTING (test code = 96 mg/dL 70-110 N GLUBED) GLUCOSE BEDSIDE [id number] 03:21:00 Test Item Value Reference Range Interpretation Comments GLUCOSE BEDSIDE TESTING (test code = 57 mg/dL 70-110 L GLUBED) GLUCOSE BEDSIDE [id number] 20:27:00 Test Item Value Reference Range Interpretation Comments GLUCOSE BEDSIDE TESTING (test code 218 mg/dL 70-110 H = GLUBED) GLUCOSE BEDSIDE [id number] 16:40:00 Test Item Value Reference Range Interpretation Comments GLUCOSE BEDSIDE TESTING (test code 268 mg/dL 70-110 H = GLUBED) GLUCOSE BEDSIDE [id number] 13:09:00 Test Item Value Reference Range Interpretation Comments GLUCOSE BEDSIDE TESTING (test code 248 mg/dL 70-110 H = GLUBED) GLUCOSE BEDSIDE [id number] 08:05:00 Test Item Value Reference Range Interpretation Comments GLUCOSE BEDSIDE TESTING (test code 177 mg/dL 70-110 H = GLUBED) BASIC METABOLIC [id number] 07:35:00 Test Item Value Reference Range Interpretation Comments SODIUM (test code = NA) 136 mmol/L 134-147 N POTASSIUM (test code = 4.0 mmol/L 3.4-5.0 N K) CHLORIDE (test code = 108 mmol/L 100-108 N CL) CARBON DIOXIDE (test 23 mmol/L 21-32 N code = CO2) ANION GAP (test code = 5.0 GAP calc 4.0-15.0 N GAP) GLUCOSE (test code = 197 MG/DL 70-110 H GLU) BLOOD UREA NITROGEN 34 MG/DL 7-18 H (test code = BUN) GLOMERULAR FILTRATION >=60 max estimate >60 RATE (test code = GFR) estGFR CREATININE (test code = 1.0 MG/DL 0.8-1.3 N CREAT) CALCIUM (test code = CA) 8.3 MG/DL 8.5-10.1 L CBC W/AUTO [id number] 05:52:00 Test Item Value Reference Range Interpretation Comments WHITE BLOOD CELL (test code = 13.1 K/mm3 3.5-11.0 H WBC) RED BLOOD CELL (test code = 4.53 M/mm3 4.70-6.10 L RBC) HEMOGLOBIN (test code = HGB) 14.2 G/DL 12.3-15.9 N HEMATOCRIT (test code = HCT) 42.0 % 35.8-46.7 N MEAN CELL VOLUME (test code = 92.7 Fl 86.3-98.9 N MCV) MEAN CELL HGB (test code = MCH) 31.3 pg 28.9-34.4 N MEAN CELL HGB CONCETRATION 33.8 G/DL 32.1-34.5 N (test code = MCHC) RED CELL DISTRIBUTION WIDTH 12.1 SD 11.5-14.5 N (test code = RDW) PLATELET COUNT (test code = 235 K/mm3 150-450 N PLT) MEAN PLATELET VOLUME (test code 10.00 fL 7.0-9.6 H = MPV) NEUTROPHIL % (test code = NT%) 73.6 % 40-76 N IMMATURE GRANULOCYTE % (test 1.3 % 0.0-5.0 N code = IG%) LYMPHOCYTE % (test code = LY%) 14.7 % 20.5-51.1 L MONOCYTE % (test code = MO%) 10.0 % 1.7-9.3 H EOSINOPHIL % (test code = EO%) 0.2 % 0.0-6.0 N BASOPHIL % (test code = BA%) 0.2 % 0.0-2.0 N NUCLEATED RBC % (test code = 0.0 /100WBC% 0.0-1.0 N NRBC%) NEUTROPHIL # (test code = NT#) 9.6 K/mm3 1.8-7.6 H IMMATURE GRANULOCYTE # (test 0.17 x10 3/uL 0.00-0.03 H code = IG#) LYMPHOCYTE # (test code = LY#) 1.9 K/mm3 0.6-3.0 N MONOCYTE # (test code = MO#) 1.3 K/mm3 0.2-1.5 N EOSINOPHIL # (test code = EO#) 0.0 K/mm3 0.0-0.4 N BASOPHIL # (test code = BA#) 0.0 K/mm3 0.0-0.2 N NUCLEATED RBC # (test code = 0.0 K/mm3 0.00-0.01 N NRBC#) MANUAL DIFF REQUIRED (test code NO DIFF/SCN CRITERIA = MDIFF) GLUCOSE BEDSIDE [id number] 03:30:00 Test Item Value Reference Range Interpretation Comments GLUCOSE BEDSIDE TESTING (test code 246 mg/dL 70-110 H = GLUBED) GLUCOSE BEDSIDE [id number] 20:35:00 Test Item Value Reference Range Interpretation Comments GLUCOSE BEDSIDE TESTING (test code 393 mg/dL 70-110 H = GLUBED) GLUCOSE BEDSIDE [id number] 16:23:00 Test Item Value Reference Range Interpretation Comments GLUCOSE BEDSIDE TESTING (test code 261 mg/dL 70-110 H = GLUBED) GLUCOSE BEDSIDE [id number] 12:37:00 Test Item Value Reference Range Interpretation Comments GLUCOSE BEDSIDE TESTING (test code 292 mg/dL 70-110 H = GLUBED) GLUCOSE BEDSIDE [id number] 08:05:00 Test Item Value Reference Range Interpretation Comments GLUCOSE BEDSIDE TESTING (test code 282 mg/dL 70-110 H = GLUBED) GLUCOSE BEDSIDE [id number] 04:17:00 Test Item Value Reference Range Interpretation Comments GLUCOSE BEDSIDE TESTING (test code 293 mg/dL 70-110 H = GLUBED) GLUCOSE BEDSIDE [id number] 19:48:00 Test Item Value Reference Range Interpretation Comments GLUCOSE BEDSIDE TESTING (test code 325 mg/dL 70-110 H = GLUBED) GLUCOSE BEDSIDE [id number] 16:10:00 Test Item Value Reference Range Interpretation Comments GLUCOSE BEDSIDE TESTING (test code 317 mg/dL 70-110 H = GLUBED) GLUCOSE BEDSIDE [id number] 11:34:00 Test Item Value Reference Range Interpretation Comments GLUCOSE BEDSIDE TESTING (test code 403 mg/dL 70-110 H = GLUBED) GLUCOSE BEDSIDE [id number] 08:17:00 Test Item Value Reference Range Interpretation Comments GLUCOSE BEDSIDE TESTING (test code 325 mg/dL 70-110 H = GLUBED) - XR CHEST 1 [id number] 07:01:[address] [facility] 1965 Sex: M Name: STEPHON AREVALO [facility] : 1965 Age/S: 55 / M [id number] Unit #: [id number] Loc: [place] [address] Phys: Fadi Masterson Jr, APRN Acct: [id number] Dis Date: Status: ADM IN PHONE #: [phone] Exam Date: 09/05/2020 0430 FAX #: Reason: COVID EXAMS: CPT: [id number] XR CHEST 1 V 98400 Fluoro Time: DAP (Gy m2): Air Kerma (mGy): Location: H59 EXAM: XR CHEST 1 VIEW INDICATION: COVIDCOMPARISON: Chest radiograph dated 09/01/2020 TECHNIQUE: AP Chest FINDINGS: Lines, tubes and hardware: None. Lungs and pleura: There is a similar appearance of patchy pulmonary opacities bilaterally. The bilateral costophrenic sulci are sharp. No appreciable pneumothorax. Heart and mediastinum: The heart size is normal. No appreciable pneumomediastinum. Bones: No acute bony abnormality is identified.IMPRESSION: Similar appearance of patchy bilateral pulmonary opacities. at 0701 Reported and signed by: Octavio Quintana M.D. CC: Raphael Manrique MD; Fadi Masterson Jr PAGE 1 Signed Report Name: STEPHON AREVALO [facility] : 1965 Age/S: 55 / M [id number] Unit #: [id number] Loc: [place] [address] Phys: Fadi Masterson Jr, APRN Acct: [id number] Dis Date: Status: ADM IN PHONE #: [phone] Exam Date: 0 FAX #: Reason: COVID EXAMS: CPT: [id number] XR CHEST 1 V 81345 Fluoro Time: DAP (Gy m2): Air Kerma (mGy): (Continued) Technologist: Areli Gold, RT(R)(CT) Trnscb Date/Time: 09/05/2020 (700) [email or web address] Orig Print D/T: S: 09/05/2020 (704) PAGE 2 Signed ReportGLUCOSE BEDSIDE [id number] 20:25:00 Test Item Value Reference Range Interpretation Comments GLUCOSE BEDSIDE TESTING (test code 423 mg/dL 70-110 H = GLUBED) GLUCOSE BEDSIDE [id number] 16:12:00 Test Item Value Reference Range Interpretation Comments GLUCOSE BEDSIDE TESTING (test code 391 mg/dL 70-110 H = GLUBED) GLUCOSE BEDSIDE [id number] 11:51:00 Test Item Value Reference Range Interpretation Comments GLUCOSE BEDSIDE TESTING (test code 433 mg/dL 70-110 H = GLUBED) GLUCOSE BEDSIDE [id number] 08:18:00 Test Item Value Reference Range Interpretation Comments GLUCOSE BEDSIDE TESTING (test code 341 mg/dL 70-110 H = GLUBED) BASIC METABOLIC [id number] 06:12:00 Test Item Value Reference Range Interpretation Comments SODIUM (test code = NA) 138 mmol/L 134-147 N POTASSIUM (test code = 4.5 mmol/L 3.4-5.0 N K) CHLORIDE (test code = 108 mmol/L 100-108 N CL) CARBON DIOXIDE (test 24 mmol/L 21-32 N code = CO2) ANION GAP (test code = 6.0 GAP calc 4.0-15.0 N GAP) GLUCOSE (test code = 371 MG/DL 70-110 H GLU) BLOOD UREA NITROGEN 35 MG/DL 7-18 H (test code = BUN) GLOMERULAR FILTRATION >=60 max estimate >60 RATE (test code = GFR) estGFR CREATININE (test code = 1.3 MG/DL 0.8-1.3 N CREAT) CALCIUM (test code = CA) 8.7 MG/DL 8.5-10.1 N CBC W/AUTO [id number] 05:58:00 Test Item Value Reference Range Interpretation Comments WHITE BLOOD CELL (test code = 18.4 K/mm3 3.5-11.0 H WBC) RED BLOOD CELL (test code = 4.24 M/mm3 4.70-6.10 L RBC) HEMOGLOBIN (test code = HGB) 13.3 G/DL 12.3-15.9 N HEMATOCRIT (test code = HCT) 40.1 % 35.8-46.7 N MEAN CELL VOLUME (test code = 94.6 Fl 86.3-98.9 N MCV) MEAN CELL HGB (test code = MCH) 31.4 pg 28.9-34.4 N MEAN CELL HGB CONCETRATION 33.2 G/DL 32.1-34.5 N (test code = MCHC) RED CELL DISTRIBUTION WIDTH 12.3 SD 11.5-14.5 N (test code = RDW) PLATELET COUNT (test code = 317 K/mm3 150-450 N PLT) MEAN PLATELET VOLUME (test code 10.50 fL 7.0-9.6 H = MPV) NEUTROPHIL % (test code = NT%) 91.9 % 40-76 H IMMATURE GRANULOCYTE % (test 0.9 % 0.0-5.0 N code = IG%) LYMPHOCYTE % (test code = LY%) 5.0 % 20.5-51.1 L MONOCYTE % (test code = MO%) 2.1 % 1.7-9.3 N EOSINOPHIL % (test code = EO%) 0.0 % 0.0-6.0 N BASOPHIL % (test code = BA%) 0.1 % 0.0-2.0 N NUCLEATED RBC % (test code = 0.0 /100WBC% 0.0-1.0 N NRBC%) NEUTROPHIL # (test code = NT#) 16.9 K/mm3 1.8-7.6 H IMMATURE GRANULOCYTE # (test 0.17 x10 3/uL 0.00-0.03 H code = IG#) LYMPHOCYTE # (test code = LY#) 0.9 K/mm3 0.6-3.0 N MONOCYTE # (test code = MO#) 0.4 K/mm3 0.2-1.5 N EOSINOPHIL # (test code = EO#) 0.0 K/mm3 0.0-0.4 N BASOPHIL # (test code = BA#) 0.0 K/mm3 0.0-0.2 N NUCLEATED RBC # (test code = 0.0 K/mm3 0.00-0.01 N NRBC#) MANUAL DIFF REQUIRED (test code NO DIFF/SCN CRITERIA = MDIFF) GLUCOSE BEDSIDE [id number] 20:09:00 Test Item Value Reference Range Interpretation Comments GLUCOSE BEDSIDE TESTING (test code 480 mg/dL 70-110 HH = GLUBED) GLUCOSE BEDSIDE [id number] 16:28:00 Test Item Value Reference Range Interpretation Comments GLUCOSE BEDSIDE TESTING (test code 490 mg/dL 70-110 HH = GLUBED) GLUCOSE BEDSIDE [id number] 11:49:00 Test Item Value Reference Range Interpretation Comments GLUCOSE BEDSIDE TESTING (test code 447 mg/dL 70-110 H = GLUBED) GLUCOSE BEDSIDE [id number] 07:59:00 Test Item Value Reference Range Interpretation Comments GLUCOSE BEDSIDE TESTING (test code 373 mg/dL 70-110 H = GLUBED) [id number] 06:25:00 Test Item Value Reference Range Interpretation Comments D-DIMER (test 627 ng/mLFEU 215-500 HH THROMBOSIS AN D/OR PULMONARY code = EMBOLISM AND TH E CLINICAL DDIMER) CUT-OFF VALUE F OR EXCLUSION (500 ng/mL FEU) OF THESE CONDITIONSIS VA LIDATED BY THE MANUFACTURE R OF THE METHOD. A NEGAT DONATO D-DIMER RESULT WHEN COM BINED WITH A CLINICALASSESSM ENT OF LOW PRETEST PROBABI LITY HAS BEEN SHOWN TO HAVEA HIGH NEGATIVE PREDICTIVE VALU E OF DVT OR PE. D-DIMER ROHAN UES >500 ng/mL FEU ARE N OT DIAGNOSTIC FOR DVT, PEor D IC WITHOUT OTHER CONFIRMAT ORY TESTS AND APPROPRIATECLIN ICAL EUALUATIONS. LACTIC DEHYDROGENASE(LDH)2020-09-03 06:19:00 Test Item Value Reference Range Interpretation Comments LACTIC DEHYDROGENASE(LDH) (test 202 Unit/L 87-241 N code = LDH) [id number] 06:19:00 Test Item Value Reference Range Interpretation Comments FERRITIN (test code = MORENO) 746.2 NG/ML 5.0-323.0 H GLUCOSE BEDSIDE [id number] 20:19:00 Test Item Value Reference Range Interpretation Comments GLUCOSE BEDSIDE TESTING (test code 387 mg/dL 70-110 H = GLUBED) GLUCOSE BEDSIDE [id number] 16:44:00 Test Item Value Reference Range Interpretation Comments GLUCOSE BEDSIDE TESTING (test code 304 mg/dL 70-110 H = GLUBED) GLUCOSE BEDSIDE [id number] 12:18:00 Test Item Value Reference Range Interpretation Comments GLUCOSE BEDSIDE TESTING (test code 380 mg/dL 70-110 H = GLUBED) - CT CHEST W/O [id number] 10:38:00 [facility] 1965 Sex: M Name: [place]ON [place] : 1965 Age/S: 55 / M [address] Unit #: [id number] Loc: [place] [address] Phys: Constantino Berumen MD Acct: [id number] Dis Date: Status: ADM IN PHONE #: [phone] Exam Date: 09/02/2020 0900 FAX #: Reason: pna hcap EXAMS: CPT: [id number] CT CHEST W/O CONTRAST 08899 Site ID: [id number] CT of the Chest HISTORY: Covid pneumonia TECHNIQUE: Axial images of the chest were obtained from the thoracic inlet to the upper abdomen without intravenous contrast. CT dose lowering technique utilized, with adjustment of MA/kV according to patient size and automated exposure control. COMPARISON: Chest x- ray of the prior day FINDINGS: The thyroid gland and thoracic inlet are unremar kable. Heart size and great vessels are normal in caliber, with mild-moderate left coronary atherosclerosis. No axillary, mediastinal or hilar adenopathy. Moderately severe patchy diffuse partially confluent groundglass alveolitis throughout the mid to lower lung aiken bilaterally, with areas of lower lobe air bronchogram formation. No pneumothorax or pneumomediastinum. No pleural or pericardial effusion. Visualized images of the upper abdomen demonstrate no abnormality. No rib fracture or destructive bone lesion appreciated. IMPRESSION: Moderately severe patchy diffuse partially confluent groundglass alveolitis throughout the mid to lower lung aiken bilaterally, with areas of lower lobe air bronchogram formation. No pneumothorax or pneumomediastinum. Electronically Signed by Nick Banegas 09/02/2020 at 1038 Reported and signed by: Eliud Fuentes M.D. PAGE 1 Signed Report (CONTINUED) Name: [place]ON [place] : 1965 Age/S: 55 / M [address] Unit #: [id number] Loc: [place] [address] Phys: Constantino Berumen MD Acct: [id number] Dis Date: Status: ADM IN PHONE #: [phone] Exam Date: 09/02/2020 0900 FAX #: Reason: pna hcap EXAMS: CPT: [id number] CT CHEST W/O CONTRAST 70003 (Continued) CC: Raphael Manrique MD; Constantino Berumen MD Technologist:Dakotah Cardenas, RT(R)(CT) CTDI: DLP: Trnscb Date/Time: 09/02/2020 (1038) [email or web address] Orig Print D/T: S: 09/02/2020 (7574) PAGE2 Signed ReportGLUCOSE BEDSIDE [id number] 08:07:00 Test Item Value Reference Range Interpretation Comments GLUCOSE BEDSIDE TESTING (test code 368 mg/dL 70-110 H = GLUBED) [id number] 07:40:00 Test Item Value Reference Range Interpretation Comments GLYCOSYLATED HEMOGLOBIN (HA1C) 7.6 % A1C 0.0-5.7 H (test code = GLYHGB) ESTIMATED AVERAGE GLUCOSE (test 171 MG/DLest code = EAG) C REACTIVE [id number] 07:09:00 Test Item Value Reference Range Interpretation Comments C REACTIVE PROTEIN (test code = 1.450 MG/DL 0.000-0.3 H CRP) BASIC METABOLIC [id number] 06:53:00 Test Item Value Reference Range Interpretation Comments SODIUM (test code = NA) 140 mmol/L 134-147 N POTASSIUM (test code = 4.8 mmol/L 3.4-5.0 N K) CHLORIDE (test code = 111 mmol/L 100-108 H CL) CARBON DIOXIDE (test 22 mmol/L 21-32 N code = CO2) ANION GAP (test code = 7.0 GAP calc 4.0-15.0 N GAP) GLUCOSE (test code = 359 MG/DL 70-110 H GLU) BLOOD UREA NITROGEN 23 MG/DL 7-18 H (test code = BUN) GLOMERULAR FILTRATION >=60 max estimate >60 RATE (test code = GFR) estGFR CREATININE (test code = 1.0 MG/DL 0.8-1.3 N CREAT) CALCIUM (test code = CA) 8.5 MG/DL 8.5-10.1 N NT PRO-BRAIN NATRIURETIC [id number] 06:53:00 Test Item Value Reference Range Interpretation Comments NT PRO-BRAIN NATRIURETIC PEPTI 209 PG/ML 0-100 H (test code = PROBNP) CBC W/AUTO [id number] 06:14:00 Test Item Value Reference Range Interpretation Comments WHITE BLOOD CELL (test code = 8.4 K/mm3 3.5-11.0 N WBC) RED BLOOD CELL (test code = 4.25 M/mm3 4.70-6.10 L RBC) HEMOGLOBIN (test code = HGB) 13.3 G/DL 12.3-15.9 N HEMATOCRIT (test code = HCT) 40.4 % 35.8-46.7 N MEAN CELL VOLUME (test code = 95.1 Fl 86.3-98.9 N MCV) MEAN CELL HGB (test code = MCH) 31.3 pg 28.9-34.4 N MEAN CELL HGB CONCETRATION 32.9 G/DL 32.1-34.5 N (test code = MCHC) RED CELL DISTRIBUTION WIDTH 12.2 SD 11.5-14.5 N (test code = RDW) PLATELET COUNT (test code = 294 K/mm3 150-450 N PLT) MEAN PLATELET VOLUME (test code 11.40 fL 7.0-9.6 H = MPV) NEUTROPHIL % (test code = NT%) 89.1 % 40-76 H IMMATURE GRANULOCYTE % (test 0.9 % 0.0-5.0 N code = IG%) LYMPHOCYTE % (test code = LY%) 7.9 % 20.5-51.1 L MONOCYTE % (test code = MO%) 2.0 % 1.7-9.3 N EOSINOPHIL % (test code = EO%) 0.0 % 0.0-6.0 N BASOPHIL % (test code = BA%) 0.1 % 0.0-2.0 N NUCLEATED RBC % (test code = 0.0 /100WBC% 0.0-1.0 N NRBC%) NEUTROPHIL # (test code = NT#) 7.5 K/mm3 1.8-7.6 N IMMATURE GRANULOCYTE # (test 0.08 x10 3/uL 0.00-0.03 H code = IG#) LYMPHOCYTE # (test code = LY#) 0.7 K/mm3 0.6-3.0 N MONOCYTE # (test code = MO#) 0.2 K/mm3 0.2-1.5 N EOSINOPHIL # (test code = EO#) 0.0 K/mm3 0.0-0.4 N BASOPHIL # (test code = BA#) 0.0 K/mm3 0.0-0.2 N NUCLEATED RBC # (test code = 0.0 K/mm3 0.00-0.01 N NRBC#) MANUAL DIFF REQUIRED (test code NO DIFF/SCN CRITERIA = MDIFF) GLUCOSE BEDSIDE [id number] 00:06:00 Test Item Value Reference Range Interpretation Comments GLUCOSE BEDSIDE TESTING (test code 291 mg/dL 70-110 H = GLUBED) COVID 19 INHOUSE [id number] 19:28:00 Test Item Value Reference Range Interpretation Comments COVID 19 INHOUSE AG NEGATIVE Negative Per manu facturer, (test code = negative result s should [id number]) be treated aspr esumptive and, if inconsi stent with clinical signs andsymptoms or necessary for patient man agement, should betested with an alternative mol ecular assay. Negative resultsdo not preclude SA RS-CoV-2 infection and s hould not be usedas the s ole basis for patient man agement decisions. Nega tive results should be considered in t he context of apatient's r ecent exposures, hist ory, presence of cli nicalsigns and symptoms co nsistent with COVID-19. BASIC METABOLIC [id number] 19:17:00 Test Item Value Reference Range Interpretation Comments SODIUM (test code = NA) 141 mmol/L 134-147 N POTASSIUM (test code = 4.1 mmol/L 3.4-5.0 N K) CHLORIDE (test code = 109 mmol/L 100-108 H CL) CARBON DIOXIDE (test 26 mmol/L 21-32 N code = CO2) ANION GAP (test code = 6.0 GAP calc 4.0-15.0 N GAP) GLUCOSE (test code = 200 MG/DL 70-110 H GLU) BLOOD UREA NITROGEN 25 MG/DL 7-18 H (test code = BUN) GLOMERULAR FILTRATION >=60 max estimate >60 RATE (test code = GFR) estGFR CREATININE (test code = 1.2 MG/DL 0.8-1.3 N CREAT) CALCIUM (test code = CA) 9.1 MG/DL 8.5-10.1 N Completed by Nursing: NOHEPATIC FUNCTION [id number] 19:17:00 Test Item Value Reference Range Interpretation Comments TOTAL PROTEIN (test code = PROT) 6.9 G/DL 6.4-8.2 N ALBUMIN (test code = ALB) 2.4 G/DL 3.4-5.0 L BILIRUBIN TOTAL (test code = 0.30 MG/DL 0.2-1.2 N BILT) BILIRUBIN DIRECT (test code = < 0.10 MG/DL 0.00-0.30 N BILD) BILIRUBIN INDIRECT (test code = 0.20 MG/DL 0.2-1.2 N BILIND) SGOT/AST (test code = AST) 16 Unit/L 15-37 N SGPT/ALT (test code = ALT) 54 Unit/L 12-78 N ALKALINE PHOSPHATASE TOTAL (test 85 Unit/L 50-136 N code = ALKP) Completed by Nursing: [id number] 19:17:00 Test Item Value Reference Range Interpretation Comments TROPONIN-I (test < 0.015 NG/ML 0.000-0.045 N Negative: </= 0.045 code = TROPI) Positive: >/= 0.046 Correlation wit h serial results, other cardiac markers, and cl inical findings is nec essary to determine the c linical significance of this result. Quantit ative results using d ifferent methodologies s hould not be compared to one another as nume rical results may nicole yby method. Completed by Nursing: NOLACTIC [id number] 19:15:00 Test Item Value Reference Range Interpretation Comments LACTIC ACID (test code = LACT) 1.8 mmol/L 0.4-2.0 N [id number] 19:10:00 Test Item Value Reference Range Interpretation Comments TROPONIN-I (test code = TROPI) NG/ML 0.000-0.045 Completed by Nursing: NOBASIC METABOLIC [id number] 19:10:00 Test Item Value Reference Range Interpretation Comments SODIUM (test code = NA) 141 mmol/L 134-147 N POTASSIUM (test code = K) 4.1 mmol/L 3.4-5.0 N CHLORIDE (test code = CL) 109 mmol/L 100-108 H CARBON DIOXIDE (test code = CO2) 26 mmol/L 21-32 N ANION GAP (test code = GAP) 6.0 GAP calc 4.0-15.0 N GLUCOSE (test code = GLU) 200 MG/DL 70-110 H BLOOD UREA NITROGEN (test code = 25 MG/DL 7-18 H BUN) GLOMERULAR FILTRATION RATE (test estGFR >60 code = GFR) CREATININE (test code = CREAT) MG/DL 0.8-1.3 CALCIUM (test code = CA) 9.1 MG/DL 8.5-10.1 N Completed by Nursing: NOHEPATIC FUNCTION [id number] 19:10:00 Test Item Value Reference Range Interpretation Comments TOTAL PROTEIN (test code = PROT) G/DL 6.4-8.2 ALBUMIN (test code = ALB) G/DL 3.4-5.0 BILIRUBIN TOTAL (test code = BILT) MG/DL 0.2-1.2 BILIRUBIN DIRECT (test code = BILD) MG/DL 0.00-0.30 BILIRUBIN INDIRECT (test code = MG/DL 0.2-1.2 BILIND) SGOT/AST (test code = AST) Unit/L 15-37 SGPT/ALT (test code = ALT) Unit/L 12-78 ALKALINE PHOSPHATASE TOTAL (test code Unit/L 50-136 = ALKP) Completed by Nursing: NOCBC W/AUTO [id number] 19:04:00 Test Item Value Reference Range Interpretation Comments WHITE BLOOD CELL (test code = 10.9 K/mm3 3.5-11.0 N WBC) RED BLOOD CELL (test code = 4.60 M/mm3 4.70-6.10 L RBC) HEMOGLOBIN (test code = HGB) 14.4 G/DL 12.3-15.9 N HEMATOCRIT (test code = HCT) 43.2 % 35.8-46.7 N MEAN CELL VOLUME (test code = 93.9 Fl 86.3-98.9 N MCV) MEAN CELL HGB (test code = MCH) 31.3 pg 28.9-34.4 N MEAN CELL HGB CONCETRATION 33.3 G/DL 32.1-34.5 N (test code = MCHC) RED CELL DISTRIBUTION WIDTH 12.4 SD 11.5-14.5 N (test code = RDW) PLATELET COUNT (test code = 400 K/mm3 150-450 N PLT) MEAN PLATELET VOLUME (test code 10.60 fL 7.0-9.6 H = MPV) NEUTROPHIL % (test code = NT%) 74.7 % 40-76 N IMMATURE GRANULOCYTE % (test 1.0 % 0.0-5.0 N code = IG%) LYMPHOCYTE % (test code = LY%) 13.4 % 20.5-51.1 L MONOCYTE % (test code = MO%) 10.1 % 1.7-9.3 H EOSINOPHIL % (test code = EO%) 0.6 % 0.0-6.0 N BASOPHIL % (test code = BA%) 0.2 % 0.0-2.0 N NUCLEATED RBC % (test code = 0.0 /100WBC% 0.0-1.0 N NRBC%) NEUTROPHIL # (test code = NT#) 8.2 K/mm3 1.8-7.6 H IMMATURE GRANULOCYTE # (test 0.11 x10 3/uL 0.00-0.03 H code = IG#) LYMPHOCYTE # (test code = LY#) 1.5 K/mm3 0.6-3.0 N MONOCYTE # (test code = MO#) 1.1 K/mm3 0.2-1.5 N EOSINOPHIL # (test code = EO#) 0.1 K/mm3 0.0-0.4 N BASOPHIL # (test code = BA#) 0.0 K/mm3 0.0-0.2 N NUCLEATED RBC # (test code = 0.0 K/mm3 0.00-0.01 N NRBC#) MANUAL DIFF REQUIRED (test code NO DIFF/SCN CRITERIA = MDIFF) - XR CHEST 1 [id number] 18:51:00 [facility] 1965 Sex: M Name: STEPHON AREVALO [place] : 1965 Age/S: 55 / M [id number] [address] Unit #: [id number] Loc: [place] [address] Phys: Braulio Orozco MD Acct: [id number] Dis Date: Status: PRE ER PHONE #: [phone] Exam Date: 09/01/2020 1843 FAX #: Reason: Code Sepsis EXAMS: CPT: [id number] XR CHEST 1 V 57764 Fluoro Time: DAP (Gy m2): Air Kerma (mGy): Site ID: [id number] HISTORY: Covid FINDINGS: Moderately severe bilateral perihilar partially confluent alveolitis with mild atelectasis. No pneumothorax or significant pleural effusion. Heart size is normal. Osseous structures are unremarkable. IMPRESSION: Moderately severe ill-defined bilateral perihilar Covid alveolitis at 1851 Reported and signed by: Eliud Fuentes M.D. CC: Braulio Orozco MD PAGE1 Signed Report Name: STEPHON AREVALO [place] : 1965 Age/S: 55 / M [id number] Unit #: [id number] Loc: [place] [address] Phys: Braulio Orozco MD Acct: [id number] Dis Date: Status: PRE ER PHONE #: [phone] Exam Date: 09/01/2020 1843 FAX #: Reason: Code Sepsis EXAMS: CPT: [id number] XR CHEST 1 V 63254 Fluoro Time: DAP (Gy m2): Air Kerma (mGy): (Continued) Technologist: Courtney RT(R)(CT)(MRI) Trnscb Date/Time: 09/01/2020 (1850) [email or web address] Orig Print D/T: S: 09/01/2020(185) PAGE 2 Signed Report
[2021-09-30 16:21] LABS: Urine Blood Trace-lysed (Negative); Urine Glucose 2+ (Negative); Urine Protein 3+ (Negative); Urine Specific Gravity 1.015 (1.005-1.030)
[2021-09-30] MEDS ORDERED: LABETALOL 20 MG/4ML SYRINGE IV ONE (16:21)
[2021-09-30] MEDS ORDERED: ONDANSETRON 4 MG/2 ML VIAL ONE (16:30)
[2021-09-30 16:31] LABS: Absolute Lymphocytes (CBC) 1.8 K/uL (0.7-4.9); Hematocrit 46.1 % (39.6-49.0); Lymphocytes % 21.2 % (15.3-44.8); MCV 92.7 fL (80-100); MPV 7.5 fL (7.6-11.3); RBC Red Blood Cell Count 4.97 M/uL (4.33-5.43)
[2021-09-30 16:38] LABS: Urine Bacteria <20 /HPF (<20); Urine RBC <5 /HPF (None Seen)
[2021-09-30 16:45] LABS: Potassium 4.1 mmol/L (3.5-5.1)
--- NOTE | 2021-09-30 16:55 | RAD REPORT ---
EXAM DESCRIPTION: CT - Head Brain Wo Cont - 09/30/2021 4:32 pm CLINICAL HISTORY: HTN, GUERRA COMPARISON: HEAD BRAIN W O CONTRAST dated 07/23/2011 TECHNIQUE: Axial 5 mm thick images of the head were obtained without IV contrast. All CT scans are performed using dose optimization technique as appropriate and may include automated exposure control or mA/KV adjustment according to patient size. FINDINGS: No intracranial hemorrhage, mass, edema or shift of mid-line structures. No acute infarcti on changes seen. No abnormal extra-axial fluid collections. Ventricles are normal. Mastoid air cells and visualized portions of the paranasal sinuses are clear. No acute bony findings. No identifiable changes from comparison. IMPRESSION: Negative non-contrast CT head examination.
[2021-09-30] MEDS ORDERED: HYDRALAZINE HCL 20 MG/ML VIAL ONE ×3 (18:21→21:45)
[2021-09-30] MEDS ORDERED: METOCLOPRAMIDE 10 MG/2mL INJ ONE (19:01)
[2021-09-30] MEDS ORDERED: DIPHENHYDRAMINE 50 MG/ML VIAL ONE (19:01)
[2021-09-30] MEDS ORDERED: KETOROLAC 30 MG/ML INJ ONE (20:17)
[2021-09-30] MEDS ORDERED: NA CHLORIDE 0.9% 500 ML ONE (20:17)
--- NOTE | 2021-09-30 22:48 | EDPHYS ---
Physician Documentation [facility] Name: Kaylie Arevalo Age: 56 yrs Sex: Male : 1965 Arrival Date: 09/30/2021 Time: 15:39 Bed 5 Private MD: Jonathan Field E ED Physician Deyvi Zapata HPI: 09/30 16:14 This 56 yrs old Male presents to ER via Ambulatory with complaints of High Blood sd2 Pressure. 16:14 56-year-old male presents with chief complaint of elevated blood pressure readings for sd2 the past week with associated headache. He reports his headaches and migraines are normally associated with his blood pressure and he has been taking his home migraine medication with no relief. He reports his blood pressure has been running 210s over 110s at home despite taking his medication. He reports that this happens occasionally and they have to adjust his medications. He has not had any recent medication changes. He denies any fevers or recent illness. He denies any chest pain, shortness of breath or vision changes. He otherwise denies any acute complaints at this time.. Historical: - Allergies: 15:56 No Known Allergies; kb3 - Home Meds: 15:56 carvedilol 25 mg Oral tab 1 tab 2 times per day [Active]; Farxiga 5 mg Oral tab 1 tab kb3 once daily [Active]; Fioricet Oral 1 tab as needed [Active]; losartan 100 mg Oral tab 1 tab once daily [Active]; metformin 1,000 mg Oral tab 1 tab 2 times per day [Active]; Semaglutide 1 mg per week [Active]; trazodone 50 mg Oral tab 1 tab nightly [Active]; atorvastatin 80 mg oral tab [Active]; Lexapro 20 mg Oral tab 1 tab once daily [Active]; - PMHx: 15:56 Anxiety; Diabetes - NIDDM; High Cholesterol; Hypertension; Covid; kb3 - Immunization history:: Adult Immunizations up to date, Client reports receiving the 2nd dose of the Covid vaccine, Last tetanus immunization: up to date. - Social history:: Smoking status: Patient denies any tobacco usage or history of. ROS: 17:36 Constitutional: Negative for fever, chills, and weight loss, Eyes: Negative for injury, sd2 pain, redness, and discharge, Cardiovascular: Negative for chest pain, palpitations, and edema, Respiratory: Negative for shortness of breath, cough, wheezing. Abdomen/GI: Negative for abdominal pain, nausea, vomiting, diarrhea. MS/Extremity: Negative for injury and deformity, Skin: Negative for injury, rash, and discoloration. 17:36 Neuro: Positive for headache, Negative for loss of consciousness, numbness, tingling, visual changes. Exam: 17:36 Constitutional: This is a well developed, well nourished patient who is awake, alert, sd2 and in no acute distress. Head/Face: Normocephalic, atraumatic. Eyes: EOMI, normal conjunctiva bilaterally Chest/axilla: Normal chest wall appearance and motion. Nontender with no deformity. Cardiovascular: Regular rate and rhythm with a normal S1 and S2. No gallops, murmurs, or rubs. 2+ distal pulses. Respiratory: Lungs have equal breath sounds bilaterally, clear to auscultation and percussion. No rales, rhonchi or wheezes noted. No increased work of breathing, no retractions or nasal flaring. Abdomen/GI: Soft, non-tender, with normal bowel sounds. No guarding or rebound. No evidence of tenderness throughout. Skin: Warm, dry with normal turgor. Normal color with no rashes, no lesions, and no evidence of cellulitis. MS/ Extremity: Pulses equal, no cyanosis. Neurovascular intact. Full, normal range of motion. Ambulatory without difficulty. Neuro: Awake and alert, GCS 15, oriented to person, place, time, and situation. Cranial nerves II-XII grossly intact. Motor strength 5/5 in all extremities. Sensory grossly intact. Cerebellar exam normal. Normal gait. Psych: Awake, alert, with orientation to person, place and time. Behavior, mood, and affect are within normal limits. 17:37 ECG was reviewed by the Attending Physician. NSR, rate 82, no STEMI criteria, TWI noted sd2 in V6 Vital Signs: 15:54 BP 218 / 114; Pulse 85; Resp 20; Temp 98.1; Pulse Ox 100% ; Weight 97.52 kg; Height 6 kb3 ft. 0 in. (182.88 cm); Pain 5/10; 17:00 BP 171 / 98; Pulse 78; Resp 16; Pulse Ox 98% ; hb 18:11 BP 188 / 108; Pulse 87; Resp 17; Pulse Ox 100% ; hb 18:59 BP 184 / 102; Pulse 78; Resp 15; Pulse Ox 100% on R/A; Pain 8/10; hb 19:19 BP 156 / 81; Pulse 100; Resp 18; Pulse Ox 97% on R/A; Pain 7/10; kl 19:20 BP 156 / 81; Pulse 100 LA; kl 19:37 BP 138 / 77; Pulse 100; Pulse Ox 96% on R/A; kl 21:19 BP 171 / 93; Pulse 85; Resp 18; Pulse Ox 100% on R/A; tw5 23:00 BP 158 / 89; Pulse 92; Resp 18; Pulse Ox 99% on R/A; Pain 0/10; kl 15:54 Body Mass Index 29.16 (97.52 kg, 182.88 cm) kb3 MDM: 16:06 Patient medically screened. sd2 17:36 Differential diagnosis: Differential diagnosis includes but is not limited to: Tension sd2 headache, migraine headache, intracranial hemorrhage, dehydration, electrolyte abnormality, musculoskeletal, meningitis among others. Data reviewed: vital signs, nurses notes. 19:35 Data reviewed: lab test result(s), radiologic studies. Counseling: I had a detailed sd2 discussion with the patient and/or guardian regarding: the historical points, exam findings, and any diagnostic results supporting the discharge/admit diagnosis, lab results, radiology results, the need for outpatient follow up, to return to the emergency department if symptoms worsen or persist or if there are any questions or concerns that arise at home. ED course: BP improved. Pt continues with GUERRA. Recently received headache medications. Will need re-evaluation and pain control prior to discharge. Care of patient signed over to Dr. Zapata at this time.. 21:37 ED course: Patient states that he is feeling much better. Indicated that he normally kdr gets a severe headache when his blood pressure spikes. While he still has a headache that is greater than 5 out of 10, he indicates that this is a typical headache for him at this point and he has medication at home that he normally takes that will resolve it. His blood pressure remained improved though it crept back up a little bit I readdressed that with an additional 10 mg of hydralazine. Patient was otherwise stable in not in any way acutely ill. 09/30 16:07 Order name: CBC with Diff; Complete Time: 16:46 sd2 09/30 16:07 Order name: BMP; Complete Time: 16:46 sd2 09/30 16:07 Order name: Urine Microscopic Only; Complete Time: 16:46 sd2 09/30 16:07 Order name: CT Head Brain wo Cont; Complete Time: 16:57 sd2 09/30 16:21 Order name: Urine Dipstick-Ancillary; Complete Time: 16:46 EDMS 09/30 16:07 Order name: Urine Dipstick-Ancillary (obtain specimen); Complete Time: 16:20 sd2 Administered Medications: 16:25 Drug: Labetalol 10 mg Route: IV; Rate: bolus; Site: right antecubital; hb 16:25 Drug: Zofran (Ondansetron) 4 mg Route: IVP; Site: right antecubital; hb 17:11 Follow up: Response: No adverse reaction hb 18:14 Drug: hydrALAZINE 10 mg Route: IVP; Site: right antecubital; hb 18:58 Drug: Reglan (metoCLOPramide) 10 mg Route: IVP; Site: right antecubital; hb 19:21 Follow up: Response: Marked relief of symptoms kl 18:58 Drug: Benadryl (diphenhydrAMINE) 25 mg Route: IVP; Site: right antecubital; hb 19:20 Follow up: Response: Marked relief of symptoms kl 18:59 Drug: hydrALAZINE 10 mg Route: IVP; Site: right antecubital; hb 19:20 Follow up: BP 156 / 81; Pulse 100 bpm Left Arm kl 20:17 Drug: NS 0.9% 500 ml Route: IV; Rate: bolus; Site: right forearm; kl 21:32 Follow up: IV Status: Completed infusion; IV Intake: 500ml kl 20:18 Drug: Ketorolac 15 mg Route: IVP; Site: right forearm; kl 21:46 Drug: hydrALAZINE 10 mg Route: IVP; Site: right forearm; kl 22:46 Drug: HydrALAZINE 25 mg Route: PO; kl 23:00 Follow up: BP 158 / 89; Pulse 92 bpm; Resp 18 bpm; Pulse Ox 99% RA; Pain 0/10 Adult kl Disposition Summary: 09/30/21 22:47 Discharge Ordered Location: Home kdr Problem: an acute exacerbation kdr Symptoms: have improved kdr Condition: Stable kdr Diagnosis - Migraine without aura, not intractable kdr - Uncontrolled hypertension kdr Followup: sd2 - With: - When: 2 - 3 days - Reason: Recheck today's complaints, Continuance of care, Re-evaluation by your physician Followup: sd2 - With: Emergency Department - When: As needed - Reason: Discharge Instructions: - Discharge Summary Sheet sd2 - Migraine Headache sd2 - Hypertension, Adult sd2 Forms: - Medication Reconciliation Form kdr - Thank You Letter kdr Prescriptions: - Hydralazine 10 mg Oral Tablet - take 1 tablet by ORAL route 2 times per day with food; 10 tablet; Refills: 0, kdr Product Selection Permitted Signatures: Dispatcher [employer] Adriana Gary RN RN kl Rittger, Kevin, MD MD kdr Baxter, Heather, RN RN hb Dunlop, Stephanie, MD MD sd2 Letty Helms RN RN kb3 Corrections: (The following items were deleted from the chart) 16:01 15:56 Home Meds: simvastatin 40 mg Oral tab; kb3 kb3 16:01 15:56 Home Meds: atorvastatin 80 mg Oral tab 1 tab nightly; kb3 kb3 16:01 15:56 Home Meds: hydralazine 25 mg Oral tab 50 mg 2 times per day; kb3 kb3 16:01 15:56 Home Meds: Nifedipine ER Oral 30 mg twice a day; kb3 kb3
--- NOTE | 2021-09-30 22:48 | ER ---
Nurse's Notes [facility] Name: Kaylie Arevalo Age: 56 yrs Sex: Male : 1965 Arrival Date: 09/30/2021 Time: 15:39 Bed 5 Private MD: Jonathan Field E Diagnosis: Migraine without aura, not intractable;Uncontrolled hypertension Presentation: 09/30 15:54 Chief complaint: Patient states: Pt reports high blood pressure x1 week. Reports taking kb3 all of his current medications as prescribed. Also states associated nausea and headaches. Coronavirus screen: Vaccine status: Patient reports being unvaccinated. Client denies travel out of the [place] in the last 14 days. Ebola Screen: Patient negative for fever greater than or equal to 101.5 degrees Fahrenheit, and additional compatible Ebola Virus Disease symptoms Patient denies exposure to infectious person. Patient denies travel to an Ebola-affected area in the 21 days before illness onset. No symptoms or risks identified at this time. Initial Sepsis Screen: Does the patient meet any 2 criteria? No. Patient's initial sepsis screen is negative. Does the patient have a suspected source of infection? No. Patient's initial sepsis screen is negative. Risk Assessment: Do you want to hurt yourself or someone else? Patient reports no desire to harm self or others. Onset of symptoms was September 22, 2021. 15:54 Method Of Arrival: Ambulatory kb3 15:54 Acuity: BK 2 kb3 Triage Assessment: 15:56 General: Appears in no apparent distress. comfortable, Behavior is calm, cooperative. kb3 Pain: Complains of pain in head Pain radiates to base of the skull Pain currently is 5 out of 10 on a pain scale. Quality of pain is described as pressure, squeezing, Pain began 1 week. Historical: - Allergies: 15:56 No Known Allergies; kb3 - Home Meds: 15:56 carvedilol 25 mg Oral tab 1 tab 2 times per day [Active]; Farxiga 5 mg Oral tab 1 tab kb3 once daily [Active]; Fioricet Oral 1 tab as needed [Active]; losartan 100 mg Oral tab 1 tab once daily [Active]; metformin 1,000 mg Oral tab 1 tab 2 times per day [Active]; Semaglutide 1 mg per week [Active]; trazodone 50 mg Oral tab 1 tab nightly [Active]; atorvastatin 80 mg oral tab [Active]; Lexapro 20 mg Oral tab 1 tab once daily [Active]; - PMHx: 15:56 Anxiety; Diabetes - NIDDM; High Cholesterol; Hypertension; Covid; kb3 - Immunization history:: Adult Immunizations up to date, Client reports receiving the 2nd dose of the Covid vaccine, Last tetanus immunization: up to date. - Social history:: Smoking status: Patient denies any tobacco usage or history of. Screenin:25 Abuse screen: Denies threats or abuse. Denies injuries from another. Nutritional hb screening: No deficits noted. Tuberculosis screening: No symptoms or risk factors identified. Fall Risk None identified. Assessment: 16:02 General: Dr Izaguirre in triage to assess pt. kb3 17:00 Reassessment: Patient appears in no apparent distress at this time. Patient and/or hb family updated on plan of care and expected duration. Pain level reassessed. Patient is alert, oriented x 3, equal unlabored respirations, skin warm/dry/pink. 18:00 Reassessment: Patient appears in no apparent distress at this time. hb 18:59 Reassessment: Pt c/o nausea and headache 8/10. Dr. Rodriguez notified, medicated as hb ordered. remains at bedside. 19:19 Reassessment: Patient appears in no apparent distress at this time. Patient and/or kl family updated on plan of care and expected duration. Pain level reassessed. Patient is alert, oriented x 3, equal unlabored respirations, skin warm/dry/pink. 21:49 Reassessment: Patient appears in no apparent distress at this time. Patient and/or kl family updated on plan of care and expected duration. Pain level reassessed. Patient is alert, oriented x 3, equal unlabored respirations, skin warm/dry/pink. Vital Signs: 15:54 BP 218 / 114; Pulse 85; Resp 20; Temp 98.1; Pulse Ox 100% ; Weight 97.52 kg; Height 6 kb3 ft. 0 in. (182.88 cm); Pain 5/10; 17:00 BP 171 / 98; Pulse 78; Resp 16; Pulse Ox 98% ; hb 18:11 BP 188 / 108; Pulse 87; Resp 17; Pulse Ox 100% ; hb 18:59 BP 184 / 102; Pulse 78; Resp 15; Pulse Ox 100% on R/A; Pain 8/10; hb 19:19 BP 156 / 81; Pulse 100; Resp 18; Pulse Ox 97% on R/A; Pain 7/10; kl 19:20 BP 156 / 81; Pulse 100 LA; kl 19:37 BP 138 / 77; Pulse 100; Pulse Ox 96% on R/A; kl 21:19 BP 171 / 93; Pulse 85; Resp 18; Pulse Ox 100% on R/A; tw5 23:00 BP 158 / 89; Pulse 92; Resp 18; Pulse Ox 99% on R/A; Pain 0/10; kl 15:54 Body Mass Index 29.16 (97.52 kg, 182.88 cm) kb3 ED Course: 15:39 Patient arrived in ED. am2 15:39 Jonathan Field MD is Private Physician. am2 15:53 Nancy Rodriguez MD is Attending Physician. sd2 15:56 Triage completed. kb3 15:56 Arm band placed on right wrist. kb3 16:20 Initial lab(s) drawn, by ia, sent to lab. Urine collected: clean catch specimen, clear. [id number] Inserted saline lock: 20 gauge in right forearm, using aseptic technique. Blood collected. 16:25 Patient has correct armband on for positive identification. hb 16:34 CT Head Brain wo Cont In Process Unspecified. EDMS 18:10 Alem Nye, RN is Primary Nurse. hb 19:54 Attending Physician role handed off by Nancy Rodriguez MD kdr 19:54 Deyvi Zapata MD is Attending Physician. kdr 22:47 Jonathan Field MD is Referral Physician. kdr 23:00 No provider procedures requiring assistance completed. IV discontinued, intact, kl bleeding controlled, No redness/swelling at site. Pressure dressing applied. Administered Medications: 16:25 Drug: Labetalol 10 mg Route: IV; Rate: bolus; Site: right antecubital; hb 16:25 Drug: Zofran (Ondansetron) 4 mg Route: IVP; Site: right antecubital; hb 17:11 Follow up: Response: No adverse reaction hb 18:14 Drug: hydrALAZINE 10 mg Route: IVP; Site: right antecubital; hb 18:58 Drug: Reglan (metoCLOPramide) 10 mg Route: IVP; Site: right antecubital; hb 19:21 Follow up: Response: Marked relief of symptoms kl 18:58 Drug: Benadryl (diphenhydrAMINE) 25 mg Route: IVP; Site: right antecubital; hb 19:20 Follow up: Response: Marked relief of symptoms kl 18:59 Drug: hydrALAZINE 10 mg Route: IVP; Site: right antecubital; hb 19:20 Follow up: BP 156 / 81; Pulse 100 bpm Left Arm kl 20:17 Drug: NS 0.9% 500 ml Route: IV; Rate: bolus; Site: right forearm; kl 21:32 Follow up: IV Status: Completed infusion; IV Intake: 500ml kl 20:18 Drug: Ketorolac 15 mg Route: IVP; Site: right forearm; kl 21:46 Drug: hydrALAZINE 10 mg Route: IVP; Site: right forearm; kl 22:46 Drug: HydrALAZINE 25 mg Route: PO; kl 23:00 Follow up: BP 158 / 89; Pulse 92 bpm; Resp 18 bpm; Pulse Ox 99% RA; Pain 0/10 Adult kl Medication: 18:18 VIS not applicable for this client. hb Intake: 21:32 IV: 500ml; Total: 500ml. Outcome: 22:47 Discharge ordered by . kdr 23:01 Discharged to home ambulatory, with family. kl 23:01 Condition: improved 23:01 Discharge instructions given to patient, Instructed on discharge instructions, follow up and referral plans. medication usage, Demonstrated understanding of instructions, follow-up care, medications, Prescriptions given X 1. 23:01 Patient left the ED. Signatures: Dispatcher [employer] EDMS Adriana Weaver RN Deyvi Villasenor MD MD kdr Baxter, Heather, RN RN Usha Xiao RN RN [id number] Lucy Knight Tiffany 5 Nancy Rodriguez MD MD sd2 Letty Helms, RN RN kb3 Corrections: (The following items were deleted from the chart) 16:01 15:56 Home Meds: simvastatin 40 mg Oral tab; kb3 kb3 16:01 15:56 Home Meds: atorvastatin 80 mg Oral tab 1 tab nightly; kb3 kb3 16:01 15:56 Home Meds: hydralazine 25 mg Oral tab 50 mg 2 times per day; kb3 kb3 16:01 15:56 Home Meds: Nifedipine ER Oral 30 mg twice a day; kb3 kb3
[2021-09-30] MEDS ORDERED: HYDRALAZINE HCL 25 MG TABLET ONE (22:52)
[2021-10-01 02:04] VITALS: TEMP 98.1
[2021-10-01 02:23] VITALS: BP 158/89; O2SAT 99
--- NOTE | 2021-10-02 08:12 | EKG ---
Test Date: 2021-09-30 Test Time: 16:13:01 Research Software Engineer: SHAINA MEASUREMENT RESULTS: Intervals: Rate: 82 LA: 140 QRSD: 90 QT: 396 QTc: 462 [place]: P: 53 LA: 140 QRS: -50 T: 22 INTERPRETIVE STATEMENTS: Normal sinus rhythm Left anterior fascicular block Voltage criteria for left ventricular hypertrophy Nonspecific T wave abnormality Prolonged QT Abnormal ECG Compared to ECG 06/29/2010 05:39:19 Left anterior fascicular block now present Left ventricular hypertrophy now present T-wave abnormality now present Prolonged QT interval now present Sinus arrhythmia no longer present Electronically Signed On 10-02-21 08:06:47 CDT by Yves Garay
== END 2021-09-30 23:01 | disposition home or self-care (01) ==
LOC: ER 15:36
DX: G43.009 Migraine without aura, not intractable, without status migrainosus (principal); I10 Essential (primary) hypertension; E11.9 Type 2 diabetes mellitus without complications; E78.00 Pure hypercholesterolemia, unspecified
CPT/HCPCS: 93005; 85025; 80048; 36415; 70450; 99284; J0360 ×3; J2765; J1200; J7040; J2405; 81003; 81015

== ENCOUNTER 2023-04-17 07:47 | Inpatient (IN) | payer BC ==
[2023-04-17] MEDS ORDERED: NA CHLORIDE 0.9% 1,000 ML ONE (08:04)
[2023-04-17] MEDS ORDERED: ONDANSETRON 4 MG/2 ML VIAL ONE (08:04)
[2023-04-17] MEDS ORDERED: FAMOTIDINE 20 MG/2 ML VIAL IV ONE (08:19)
[2023-04-17] MEDS ORDERED: PROMETHAZINE INJ 25 MG/ML AMP ONE (08:21)
[2023-04-17 08:36] LABS: Absolute Basophils 0.1 K/uL (0-0.5); Absolute Lymphocytes (CBC) 2.1 K/uL (0.7-4.9); Basophils % 0.4 % (0-1.3); Lymphocytes % 11.6 % (15.3-44.8); MCV 89.8 fL (80-100); MPV 7.8 fL (7.6-11.3); Platelets 313 thou/uL (152-406); RBC Red Blood Cell Count 4.12 M/uL (4.33-5.43)
[2023-04-17 08:59] LABS: Albumin 3.6 g/dL (3.4-5.0); Albumin/Globulin Ratio 0.8 (1.1-1.8); Anion Gap 17.4 mEq/L (5.0-15.0); Bilirubin Total 0.5 mg/dL (0.2-1.0); Potassium 4.4 mEq/L (3.5-5.1); Protein, Total 8.3 g/dL (6.4-8.2)
[2023-04-17] MEDS ORDERED: LORazepam 2 MG/ML VIAL ONE (09:20)
[2023-04-17 09:29] LABS: Specific Gravity 1.011 (1.005-1.030); Urine Bacteria None Seen /HPF (<20); Urine Bilirubin NEGATIVE (Negative); Urine Blood Negative (Negative); Urine Clarity Clear (Clear); Urine Color Light-Yellow (Yellow); Urine Glucose 3+ (Negative); Urine Mucus Slight /HPF (None Seen); Urine Protein 3+ (Negative); Urine RBC <5 /HPF (None Seen); Urine Urobilinogen Normal (Normal)
--- NOTE | 2023-04-17 10:05 | RAD REPORT ---
EXAM DESCRIPTION: CT - Abdomen Pelvis Wo Contrast - 04/17/2023 9:33 am CLINICAL HISTORY: ABD PAIN COMPARISON: CT ABD PELVIS W WO CONTRAST dated 10/01/2002 TECHNIQUE: Thin cut axial CT imaging of the abdomen and pelvis was performed without IV contrast. Mu ltiplanar reformats were generated and reviewed. All CT scans are performed using dose optimization technique as appropriate and may include automated exposure control or mA/KV adjustment according to patient size. FINDINGS: No suspicious findings in the lung bases. The liver, spleen, adrenal glands, and pancreas show no suspicious findings. Gallbladder and biliary tree are also without suspicious finding. Symmetric renal contour, without suspicious parenchymal findings within limits of noncontrast techniq ue. No evidence of radiopaque calculi or hydroureteronephrosis. No dilated bowel loops. Short-segment of mild wall prominence and adjacent fat stranding along the pr oximal sigmoid colon. See series 202 images 30 through 40. No free air, free fluid, or abnormal fluid collections. Small left inguinal hernia containing fat. No suspicious mass or bulky lymphadenopathy. The urinary bladder is without significant finding. No suspicious bony findings. IMPRESSION: Findings suggestive of segmental infectious or inflammatory colitis of the proximal sigm oid colon. No evidence of abnormal fluid collections or fistula formation.
[2023-04-17] MEDS ORDERED: PIPERACIL/TAZO 3.375 GM VIAL IV ONE (10:59)
[2023-04-17] MEDS ORDERED: NA CHLORIDE 0.9% 250 ML ONE (11:00)
[2023-04-17 11:16] LABS: Protime INR 1.05
--- NOTE | 2023-04-17 11:37 | ER ---
Nurse's Notes [facility] Name: Kaylie Arevalo Age: 57 yrs Sex: Male : 1965 Arrival Date: 04/17/2023 Time: 07:47 Bed 7 Private MD: Diagnosis: Undifferentiated Colitis;Essential (primary) hypertension;Hyperglycemia, unspecified;Vomiting;Abdominal pain, unspecified Presentation: 04/16 07:53 Chief complaint: Patient states: NAUSEA, VOMITING AND STOMACH CRAMPING SINCE 2300. bp Coronavirus screen: At this time, the client does not indicate any symptoms associated with coronavirus-19. Ebola Screen: No symptoms or risks identified at this time. Initial Sepsis Screen: Does the patient meet any 2 criteria? No. Patient's initial sepsis screen is negative. Does the patient have a suspected source of infection? No. Patient's initial sepsis screen is negative. Risk Assessment: Do you want to hurt yourself or someone else? Patient reports no desire to harm self or others. Onset of symptoms was April 16, 2023 at 23:00. 07:53 Method Of Arrival: Ambulatory bp 07:53 Acuity: BK 3 bp Triage Assessment: 07:53 General: Appears uncomfortable, Behavior is cooperative, appropriate for age, anxious. bp Pain: Complains of pain in abdomen. GI: Reports cramping, nausea, vomiting. Historical: - Allergies: 07:53 No Known Allergies; bp - PMHx: 07:53 Anxiety; Diabetes - NIDDM; COVID; High Cholesterol; Hypertension; bp - Immunization history:: Adult Immunizations up to date. - Social history:: Smoking status: unknown. Screenin:03 [facility] ED Fall Risk Assessment (Adult) History of falling in the last 3 months, kc6 including since admission No falls in past 3 months (0 pts) Confusion or Disorientation No (0 pts) Intoxicated or Sedated No (0 pts) Impaired Gait No (0 pts) Mobility Assist Device Used No (0 pt) Altered Elimination No (0 pt) Score/Fall Risk Level 0 - 2 = Low Risk. Abuse screen: Denies threats or abuse. Denies injuries from another. Nutritional screening: No deficits noted. Tuberculosis screening: No symptoms or risk factors identified. Assessment: 08:03 General: Appears in no apparent distress. uncomfortable, well groomed, well developed, kc6 Behavior is calm, cooperative, appropriate for age. Pain: Complains of pain in abdomen Pain does not radiate. Pain currently is 6 out of 10 on a pain scale. Quality of pain is described as crampy, Pain began 1 day ago. Is continuous, Alleviated by nothing. Aggravated by eating, drinking, Noted to be moaning. Neuro: Level of Consciousness is awake, alert, obeys commands, Oriented to person, place, time, situation, Appropriate for age. Cardiovascular: Capillary refill < 3 seconds. Respiratory: Airway is patent Trachea midline Respiratory effort is even, unlabored, Respiratory pattern is regular, symmetrical. GI: Abdomen is round Bowel sounds present X 4 quads. Reports nausea, vomiting, Patient currently denies diarrhea. : No signs and/or symptoms were reported regarding the genitourinary system. EENT: No signs and/or symptoms were reported regarding the EENT system. Derm: No signs and/or symptoms reported regarding the dermatologic system. Skin is intact, is healthy with good turgor, Skin is dry, Skin is pale, Skin temperature is warm. Musculoskeletal: No signs and/or symptoms reported regarding the musculoskeletal system. Circulation, motion, and sensation intact. Capillary refill < 3 seconds, Range of motion: intact in all extremities. 08:03 GI: Pt is actively vomiting bile, clear fluid. ko1 08:30 GI: Pt is actively vomiting bile. ko1 09:03 Reassessment: Patient appears in no apparent distress at this time. No changes from kc6 previously documented assessment. Patient and/or family updated on plan of care and expected duration. Pain level reassessed. Patient is alert, oriented x 3, equal unlabored respirations, skin warm/dry/pink. 09:32 GI: Pt is actively vomiting bile. ko1 11:00 Reassessment: Patient appears in no apparent distress at this time. No changes from ko1 previously documented assessment. Patient and/or family updated on plan of care and expected duration. Pain level reassessed. Patient is alert, oriented x 3, equal unlabored respirations, skin warm/dry/pink. Patient states feeling better. 12:00 Reassessment: Patient appears in no apparent distress at this time. No changes from ko1 previously documented assessment. Patient and/or family updated on plan of care and expected duration. Pain level reassessed. Patient is alert, oriented x 3, equal unlabored respirations, skin warm/dry/pink. Patient states symptoms have improved. 13:00 Reassessment: Patient appears in no apparent distress at this time. No changes from ko1 previously documented assessment. Patient and/or family updated on plan of care and expected duration. Pain level reassessed. Patient is alert, oriented x 3, equal unlabored respirations, skin warm/dry/pink. 14:00 Reassessment: Patient appears in no apparent distress at this time. No changes from ko1 previously documented assessment. Patient and/or family updated on plan of care and expected duration. Pain level reassessed. Patient is alert, oriented x 3, equal unlabored respirations, skin warm/dry/pink. 15:00 Reassessment: Patient appears in no apparent distress at this time. No changes from ko1 previously documented assessment. Patient and/or family updated on plan of care and expected duration. Pain level reassessed. Patient is alert, oriented x 3, equal unlabored respirations, skin warm/dry/pink. Vital Signs: 07:53 BP 167 / 85; Pulse 107; Resp 16; Temp 98; Pulse Ox 100% ; Weight 117.93 kg; Height 6 bp ft. 1 in. ; 08:09 BP 152 / 85; Pulse 98; Resp 19 S; Pulse Ox 99% on R/A; kc6 09:22 BP 168 / 80; Pulse 108; Resp 19 S; Pulse Ox 100% on R/A; kc6 10:30 BP 157 / 78; Pulse 98; Resp 15; Pulse Ox 99% ; ko1 12:00 BP 145 / 72; Pulse 108; Resp 15; Pulse Ox 99% ; ko1 15:00 BP 140 / 68; Pulse 89; Resp 15; Pulse Ox 100% ; ko1 07:53 Body Mass Index 34.30 (117.93 kg, 185.42 cm) bp ED Course: 07:49 Patient arrived in ED. im 07:53 Arm band placed on. bp 07:55 Triage completed. bp 08:00 Assisted to bathroom. ko1 08:02 Lori Bowser, RN is Primary Nurse. kc6 08:03 Patient has correct armband on for positive identification. Bed in low position. Call kc6 light in reach. Side rails up X 1. Adult w/ patient. Client placed on continuous cardiac and pulse oximetry monitoring. NIBP monitoring applied. 08:03 Patient maintains SpO2 saturation greater than 95% on room air. kc6 08:08 Inserted saline lock: 22 gauge in right antecubital area, using aseptic technique. rv1 Blood collected. 08:09 Justen Grady DO is Attending Physician. ms3 08:20 Lipase Sent. ko1 08:20 CMP Sent. ko1 08:20 CBC with Diff Sent. ko1 08:37 Urinalysis w/ reflexes Sent. ko1 09:00 Assisted to bathroom. ko1 09:33 Abdomen In Process Unspecified. EDMS 09:50 Provided Education on: na. ko1 09:50 No provider procedures requiring assistance completed. ko1 10:00 Door closed. Noise minimized. Lights dimmed. Warm blanket given. Pillow given. Cool ko1 cloth applied. Verbal reassurance given. Assisted to bathroom. 10:46 Blood Culture Adult (2) Sent. ko1 10:46 Lactate w/ 2H reflex if indic. Sent. ko1 10:46 Protime (+inr) Sent. ko1 10:46 Ptt, Activated Sent. ko1 11:00 Assisted to bedside commode. ko1 11:02 Inserted saline lock: 18 gauge in left antecubital area, using aseptic technique. Blood ds4 collected. 11:35 Eric Osorio is Hospitalizing Provider. ms3 13:00 Assisted to bedside commode. ko1 15:52 Patient admitted, IV remains in place. ko1 Administered Medications: 08:20 Drug: NS 0.9% IV 1000 ml IV at 1 bolus Per protocol; 1000 mL bolus Route: IV; Rate: 1 ko1 bolus; Site: right antecubital; 11:00 Follow up: Response: No adverse reaction; IV Status: Completed infusion; IV Intake: ko1 1000ml 08:20 Drug: Ondansetron IVP 4 mg IVP once; over 2 minutes Route: IVP; Site: right antecubital;ko1 08:42 Follow up: Response: No adverse reaction; No change in condition; Nausea unchanged ko1 08:29 Drug: Famotidine IVP 20 mg IVP once; dilute with 10 mL 0.9% NaCl; give over 2 minutes ko1 Route: IVP; Site: right antecubital; 08:43 Follow up: Response: No adverse reaction ko1 08:29 Drug: Promethazine IM 25 mg IM once Route: IM; Site: right gluteus; ko1 08:43 Follow up: Response: No adverse reaction; Nausea unchanged; Vomiting unchanged ko1 09:29 Drug: Ativan IVP 1 mg IVP once Route: IVP; Site: right antecubital; ko1 10:00 Follow up: Response: No adverse reaction; Nausea is decreased ko1 09:38 CANCELLED (Physician Discretion; do not have per pharmacy): droperidol2.5 mg IVP once kc6 11:29 Drug: Piperacillin-Tazobactam IVPB 3.375 grams IVPB once over 60 mins; (mix in NS 100 ko1 mL) Route: IVPB; Infused Over: 60 mins; Site: left antecubital; 12:30 Follow up: IV Status: Completed infusion; IV Intake: 100ml ko1 Medication: 09:50 VIS not applicable for this client. ko1 Intake: 11:00 IV: 1000ml; Total: 1000ml. ko1 12:30 IV: 100ml; Total: 1100ml. ko1 15:57 PO: 120ml (Water); IV: 1250ml (IV Fluid); Total: 2470ml. ko1 Output: 15:57 Urine: 750ml (Voided); Stool: 4 (Loose Stool) ; Total: 750ml. ko1 Outcome: 11:36 Decision to Hospitalize by Provider. ms3 15:00 Admitted to Med/surg accompanied by tech, family with patient, via wheelchair, room ko1 403, with chart, Report called to JAMES Han 16:04 Condition: improved ko1 16:04 Instructed on the need for admit, 16:23 Patient left the ED. ko1 Signatures: Dispatcher [employer] EDMS Edy Harley ds4 Kai Hercules RN RN Justen Pollock DO DO ms3 Lori Bowser RN RN [email or web address] Veronika Cota RN RN ko1 Susan Grijalva rv1 Brittney Fraser im Corrections: (The following items were deleted from the chart) 08:09 08:03 Pain: Complains of pain in abdomen Quality of pain is described as crampy, kc6 kc6
--- NOTE | 2023-04-17 11:37 | EDPHYS ---
Physician Documentation [facility] Name: Kaylie Arevalo Age: 57 yrs Sex: Male : 1965 Arrival Date: 04/17/2023 Time: 07:47 Bed 7 Private MD: ED Physician Justen Grady HPI: 04/16 09:08 This 57 yrs old Male presents to ER via Ambulatory with complaints of Vomiting, ms3 Abdominal Pain. 09:08 57-year-old male with past medical history of anxiety, diabetes, COVID, hyperlipidemia, ms3 hypertension presents to the emergency department for abdominal cramps, vomiting that began yesterday at 4 PM. Patient denies sick contacts. Patient endorses chills. Patient denies any alleviating or inciting factors. Historical: - Allergies: 07:53 No Known Allergies; bp - PMHx: 07:53 Anxiety; Diabetes - NIDDM; COVID; High Cholesterol; Hypertension; bp - Immunization history:: Adult Immunizations up to date. - Social history:: Smoking status: unknown. ROS: 09:08 Constitutional: Negative for fever, and chills. Neck: Negative for injury, pain, and ms3 swelling, Cardiovascular: Negative for chest pain, and palpitations. Respiratory: Negative for shortness of breath, cough, wheezing, and pleuritic chest pain, 09:08 MS/Extremity: Negative for injury and deformity, Skin: Negative for injury, rash, and discoloration, 09:08 Abdomen/GI: Positive for abdominal pain, nausea and vomiting, Exam: 09:08 Constitutional: This is a well developed, well nourished patient who is awake, alert, ms3 and in no acute distress. Head/Face: Normocephalic, atraumatic. Neck: Trachea midline, no cervical lymphadenopathy. Supple, full range of motion without nuchal rigidity, or vertebral point tenderness. No Meningismus. Chest/axilla: Normal chest wall appearance and motion. Nontender with no deformity. Cardiovascular: Regular rate and rhythm with a normal S1 and S2. No gallops, murmurs, or rubs. Normal PMI, no JVD. No pulse deficits. Respiratory: Lungs have equal breath sounds bilaterally, clear to auscultation and percussion. No rales, rhonchi or wheezes noted. No increased work of breathing, no retractions or nasal flaring. 09:08 Skin: Warm, dry with normal turgor. Normal color with no rashes, no lesions, and no evidence of cellulitis. 09:08 Abdomen/GI: Inspection: abdomen appears normal, Bowel sounds: normal, Palpation: moderate abdominal tenderness, in all quadrants, 14:24 ECG was reviewed by the Attending Physician. ms3 Vital Signs: 07:53 BP 167 / 85; Pulse 107; Resp 16; Temp 98; Pulse Ox 100% ; Weight 117.93 kg; Height 6 bp ft. 1 in. ; 08:09 BP 152 / 85; Pulse 98; Resp 19 S; Pulse Ox 99% on R/A; kc6 09:22 BP 168 / 80; Pulse 108; Resp 19 S; Pulse Ox 100% on R/A; kc6 10:30 BP 157 / 78; Pulse 98; Resp 15; Pulse Ox 99% ; ko1 12:00 BP 145 / 72; Pulse 108; Resp 15; Pulse Ox 99% ; ko1 15:00 BP 140 / 68; Pulse 89; Resp 15; Pulse Ox 100% ; ko1 07:53 Body Mass Index 34.30 (117.93 kg, 185.42 cm) bp MDM: 08:19 Patient medically screened. ms3 09:08 Differential diagnosis: Nonspecific abd pain, gastritis, Bowel obstruction. ms3 10:22 ED course: CT scan results reviewed and patient noted to have colitis. HR >90, WBC ms3 >12k. Sepsis order set ordered.. 14:24 Data reviewed: vital signs, nurses notes, lab test result(s), EKG, radiologic studies, ms3 CT scan, and as a result, I will admit patient. Consideration of Admission/Observation Patient was admitted/placed on observation. Management of patient was discussed with the following: Hospitalist: Discussed case with Dr. Osorio and he accepts patient. All questions answered. Discussed plan with patient and his and they understand and agree with plan.. I considered the following discharge prescriptions or medication management in the emergency department Medications were administered in the Emergency Department. See MAR. Independent interpretation of the following test(s) in the Emergency Department CT Scan: My interpretation is CT images reviewed by me do not reveal bowel obstruction . Care significantly affected by the following chronic conditions: Diabetes, Hypertension. Counseling: I had a detailed discussion with the patient and/or guardian regarding the historical points, exam findings, and any diagnostic results supporting the discharge/admit diagnosis, lab results, radiology results, the need for further work-up and treatment in the hospital. ED course: Discussed necessity for admission with patient and his . They understand and agree with plan. All questions were answered.. 04/16 08:18 Order name: CBC with Diff; Complete Time: 10:04 ms3 04/16 08:18 Order name: CMP; Complete Time: 10:04 ms3 04/16 08:18 Order name: Lipase; Complete Time: 10:05 ms3 04/16 08:18 Order name: Urinalysis w/ reflexes; Complete Time: 10:05 ms3 04/16 10:22 Order name: Blood Culture Adult (2) ms3 04/16 10:22 Order name: Lactate w/ 2H reflex if indic.; Complete Time: 11:28 ms3 04/16 10:22 Order name: Protime (+inr); Complete Time: 11:28 ms3 04/16 10:22 Order name: Ptt, Activated; Complete Time: 11:28 ms3 04/16 09:33 Order name: Abdomen ; Complete Time: 10:21 EDMS 04/16 10:22 Order name: EKG; Complete Time: 10:22 ms3 04/16 12:30 Order name: CONS Physician Consult EDMS 04/16 08:19 Order name: IV Saline Lock; Complete Time: 08:20 ms3 04/16 08:19 Order name: Labs collected and sent; Complete Time: 08:20 ms3 04/16 10:22 Order name: Accucheck; Complete Time: 10:46 ms3 04/16 10:22 Order name: Cardiac monitoring; Complete Time: 10:46 ms3 04/16 10:22 Order name: EKG - Nurse/Tech; Complete Time: 10:46 ms3 04/16 10:22 Order name: IV Saline Lock - Large Bore; Complete Time: 10:46 ms3 04/16 10:22 Order name: O2 Per Protocol; Complete Time: 10:46 ms3 04/16 10:22 Order name: O2 Sat Monitoring; Complete Time: 10:46 ms3 04/16 10:22 Order name: Vital Signs; Complete Time: 10:46 ms3 EC:24 Rate is 98 beats/min. Rhythm is regular. QRS [place] is Normal. NE interval is normal. ms3 Clinical impression: NSR w/ Non-specific ST/T Changes. Interpreted by me. Reviewed by me. Administered Medications: 08:20 Drug: NS 0.9% IV 1000 ml IV at 1 bolus Per protocol; 1000 mL bolus Route: IV; Rate: 1 ko1 bolus; Site: right antecubital; 11:00 Follow up: Response: No adverse reaction; IV Status: Completed infusion; IV Intake: ko1 1000ml 08:20 Drug: Ondansetron IVP 4 mg IVP once; over 2 minutes Route: IVP; Site: right antecubital;ko1 08:42 Follow up: Response: No adverse reaction; No change in condition; Nausea unchanged ko1 08:29 Drug: Famotidine IVP 20 mg IVP once; dilute with 10 mL 0.9% NaCl; give over 2 minutes ko1 Route: IVP; Site: right antecubital; 08:43 Follow up: Response: No adverse reaction ko1 08:29 Drug: Promethazine IM 25 mg IM once Route: IM; Site: right gluteus; ko1 08:43 Follow up: Response: No adverse reaction; Nausea unchanged; Vomiting unchanged ko1 09:29 Drug: Ativan IVP 1 mg IVP once Route: IVP; Site: right antecubital; ko1 10:00 Follow up: Response: No adverse reaction; Nausea is decreased ko1 09:38 CANCELLED (Physician Discretion; do not have per pharmacy): droperidol2.5 mg IVP once kc6 11:29 Drug: Piperacillin-Tazobactam IVPB 3.375 grams IVPB once over 60 mins; (mix in NS 100 ko1 mL) Route: IVPB; Infused Over: 60 mins; Site: left antecubital; 12:30 Follow up: IV Status: Completed infusion; IV Intake: 100ml ko1 Disposition Summary: 04/17/23 11:36 Hospitalization Ordered Notes: Hospitalization Status: Inpatient Admission ms3 Provider: Eric Osorio ms3 Condition: Stable ms3 Problem: new ms3 Symptoms: are unchanged ms3 Bed/Room Type: Standard ms3 Location: Telemetry/MedSurg (Inpatient)(04/17/23 15:43) bd Room Assignment: 403(04/17/23 15:43) bd Diagnosis - Undifferentiated Colitis ms3 - Essential (primary) hypertension ms3 - Hyperglycemia, unspecified ms3 - Vomiting ms3 - Abdominal pain, unspecified ms3 Forms: - Medication Reconciliation Form ms3 - SBAR form ms3 - Leadership Thank You Letter ms3 Signatures: Dispatcher [employer] EDMS Laya Faulkner bd Kai Hercules, RN RN bp Grady, Justen, DO DO ms3 Veronika Cota RN RN ko1 Lori Bowser RN kc6 Corrections: (The following items were deleted from the chart) 09:33 08:19 Abdomen Pelvis W Con+CT.RAD.BRZ ordered. EDMS EDMS 09:38 09:08 Droperidol IVP 2.5 mg IVP once ordered. ms3 kc6 09:38 09:15 Droperidol IVP 2.5 mg IVP once ordered. ms3 kc6 12:35 11:36 Telemetry/MedSurg (Inpatient) ms3 bd 12:35 11:36 ms3 bd 15:43 12:[address] [facility] ER HOLD bd bd 15:43 12:35 ERHOLD- bd bd
--- NOTE | 2023-04-17 12:06 | P.HP ---
Certification for Inpatient Patient admitted to: Inpatient With expected LOS: >2 Midnights Patient will require the following post-hospital care: None Practitioner: I am a practitioner with admitting privileges, knowledge of patient current condition, hospital course, and medical plan of care. Services: Services provided to patient in accordance with Admission requirements found in Title 42 Section 412.3 of the Code of Federal Regulations Patient History Date of Service: 04/17/23 Reason for admission: CKD, colitis History of Present Illness: Kaylie Arevalo is a 57-year-old male with past medical history of hypertension, hyperlipidemia, diabetes mellitusNIDDM, anxiety, and COVID who presents to the ED complaints of abdominal cramping, vomiting, chills since yesterday at 4 PM. is at the bedside and is a good historian. She reports his chronic kidney disease started with COVID in 2020, his kidney function was still good recently. On examination, he is experiencing lower abdominal pain, he reports urination retention and constipation [employer]. While in the ED he was given Zosyn, Phenergan, and 1 L normal saline. Initial vitals BP 167 / 85; Pulse 107; Resp 16; Temp 98; Pulse Ox 100% Laboratory evaluations sodium 133, potassium 4.4, BUN/creatinine 76/4.9, GFR 13, serum glucose 410, lipase 184, white blood cells 18.4, bicarb 18 CT abdomen pelvis reports "Findings suggestive of segmental infectious or inflammatory colitis of the proximal sigmoid colon. No evidence of abnormal fluid collections or fistula formation" Kaylie will be admitted to hospital service for further evaluation and treatment of colitis and CKD, Dr. Galvez consulted Allergies No Known Allergies Allergy (Verified 04/17/23 16:38) - Past Medical/Surgical History -: CKD -: HTN -: HLD -: DM-NIDDM -: anxiety -: COVID - Family History Family History: Reviewed- Non-Contributory - Social History Smoking Status: Never smoker Alcohol use: No CD- Drugs: No Place of Residence: Home Review of Systems General: Chills Gastrointestinal: Vomiting, Abdominal Pain, Constipation Physical Examination - Physical Exam General: Alert, In no apparent distress, Oriented x3 HEENT: Atraumatic, Normocephalic, PERRLA Neck: Supple, 2+ carotid pulse no bruit, JVD not distended Respiratory: Clear to auscultation bilaterally, Normal air movement Cardiovascular: Normal pulses, Regular rate/rhythm, Normal S1 S2 Capillary refill: <2 Seconds Gastrointestinal: Normal bowel sounds, Soft and benign, Tenderness Musculoskeletal: No clubbing, No swelling, No contractures Integumentary: No breakdown, No significant lesion, No tenderness/swelling Neurological: Normal speech, Normal strength at 5/5 x4 extr, Normal tone - Studies Laboratory Data (last 24 hrs) 04/17/23 04/17/23 04/17/23 11:00 08:10 08:10 WBC 18.40 H Hgb 12.5 L Hct 37.0 L Plt Count 313 PT 11.5 INR 1.05 APTT 29.3 Sodium 133 L Potassium 4.4 BUN 76 H Creatinine 4.97 H Glucose 410 H* Total Bilirubin 0.5 AST 11 L ALT 24 Alkaline Phosphatase 139 H Lipase 184 H Assessment and Plan - Plan Assessment and plan Sepsis without septic shock of unknown source Colitis of the proximal sigmoid Leukocytosis Fluid volume deficit secondary to vomiting and diarrhea WBC 18.4, lipase 184, bicarb 18, HR 107- sirs criteria Zosyn Phenergan Aggressive IV fluids Monitor labs in the AM Acute on Chronic Kidney Disease Dr. Galvez consulted BUN/creatinine 76/4.9, GFR 13 Aggressive IV fluids Diabetes Mellitus NIDDM with hyperglycemia accucheck with SSI Serum glucose 410 Hx HTN/HLD restart home medications when available Small left inguinal hernia Outpatient follow-up DVT PPx heparin Full code LOS 2 to 3 days Discharge Plan: Home Plan to discharge in: 48 Hours - Advance Directives Does patient have a Living Will: No Does patient have a Durable POA for Healthcare: No Time Spent Managing Pts Care (In Minutes): 50
[2023-04-17] MEDS ORDERED: PROMETHAZINE INJ 25 MG/ML AMP IV PRN (12:34)
[2023-04-17] MEDS ORDERED: MORPHINE 2 MG/ML SYR IV PRN (12:34)
[2023-04-17] MEDS ORDERED: LORazepam 2 MG/ML VIAL IV PRN (12:34)
[2023-04-17] MEDS: NA CHLORIDE 0.9% 1,000 ML IV SCH (13:00)
[2023-04-17] MEDS ORDERED: D50W 25 GM/50 ML SYRINGE IV PRN (13:09)
[2023-04-17] MEDS ORDERED: GLUCAGON 1 MG/VIAL IM PRN (13:09)
[2023-04-17] MEDS ORDERED: D10W 125 ML IV PRN (13:13)
[2023-04-17 16:43] VITALS: O2SAT 100; BMI 34.2
[2023-04-17] MEDS: INSULIN REGULAR (HUMAN) 100 UNIT/ML SQ SCH (17:50)
[2023-04-17] MEDS: HEPARIN 5000 UNIT/ML 1 ML VIAL SQ SCH (20:32)
[2023-04-17] MEDS: PIPER TAZO 3.375 GM in NA CHLORIDE 0.9% 100 ML IV SCH (20:32)
[2023-04-18 06:53] LABS: Absolute Lymphocytes (CBC) 1.9 K/uL (0.7-4.9); Basophils % 0.2 % (0-1.3); Hematocrit 33.6 % (39.6-49.0); Lymphocytes % 12.1 % (15.3-44.8); MPV 7.5 fL (7.6-11.3); Platelets 245 thou/uL (152-406)
[2023-04-18 07:13] LABS: Anion Gap 12.8 mEq/L (5.0-15.0); Phosphorus 5.9 mg/dL (2.5-4.9); Potassium 3.8 mEq/L (3.5-5.1)
--- NOTE | 2023-04-18 08:00 | P.PN ---
Patient seen and examined. Plan of care discussed with Jaya. Patient stated he feels better today. Leukocytosis improved slightly. Sepsis secondary to enterocolitis. Septic shock versus hypovolemic shock. Blood pressure improved quickly with IV hydration. Nephrology input appreciated. Patient has a diagnosis of chronic kidney disease stage IV secondary to IgA nephropathy. Nephrology is arranging for peritoneal dialysis as outpatient. Continue to monitor renal function Infectious disease input appreciated Continue IV Zosyn Follow blood cultures. <fermin escoto - Last Filed: 04/18/23 16:23> Date of Service: 04/18/23 Subjective Feeling better this AM No new complaints. ROS 10 point ROS as noted above, otherwise negative Physical Exam General: AAOx3, NAD HEENT: Atraumatic, Normocephalic, PERRLA Neck: Supple, 2+ carotid pulse no bruit, JVD not distended Respiratory: Clear to auscultation bilaterally, Normal air movement Cardiovascular: Normal pulses, RRR, S1 S2 present, no murmur noted Capillary refill: <2 Seconds Gastrointestinal: Normal bowel sounds, Soft and benign, Tenderness Musculoskeletal: No clubbing, No swelling, No contractures Integumentary: No breakdown, No significant lesion, No tenderness/swelling Neurological: Normal speech, Normal strength at 5/5 x4 extr, Normal tone Vitals Reviewed Problem list Sepsis Secondary to enteritis Septic shock vs hypovolemic shock Colitis of the proximal sigmoid Leukocytosis Fluid volume deficit secondary to vomiting and diarrhea Acute on Chronic Kidney Disease Diabetes Mellitus NIDDM with hyperglycemia Hx HTN/HLD Small left inguinal hernia Assessment and Plan Sepsis Secondary to enteritis Septic shock vs hypovolemic shock Colitis of the proximal sigmoid Leukocytosis Fluid volume deficit secondary to vomiting and diarrhea Initial sirs criteria WBC 18.4, lipase 184, bicarb 18, HR 107 WBC 15.9- improved, bicarb 21, afebrile, VSS continue IV Zosyn Phenergan Aggressive IV fluids Monitor labs in the AM Acute on Chronic Kidney Disease Dr. Galvez consulted BUN/creatinine 73/4.76, GFR 14, UOP 1500 Aggressive IV fluids Diabetes Mellitus NIDDM with hyperglycemia accucheck with SSI Serum glucose 154 Hx HTN/HLD restart home medications when available Small left inguinal hernia Outpatient follow-up DVT PPx heparin Full code LOS 2 to 3 days Discharge Plan: Home Plan to discharge in: 48 Hours <Karrie Laek - Last Filed: 04/19/23 06:18>
[2023-04-18] MEDS: POTASSIUM CL SA 10 MEQ TAB PO ONE (08:21)
[2023-04-18] MEDS: ESCITALOPRAM 20 MG TAB PO SCH (08:43)
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
[2023-04-18] MEDS: Ringers Lactate 1,000 ML IV SCH (11:52)
--- NOTE | 2023-04-18 14:17 | EKG ---
Test Date: 2023-04-17 Test Time: 10:31:[address]: SARAH MEASUREMENT RESULTS: Intervals: Rate: 98 NM: 166 QRSD: 98 QT: 396 QTc: 505 [place]: P: 48 NM: 166 QRS: -52 T: 49 INTERPRETIVE STATEMENTS: Normal sinus rhythm Left anterior fascicular block Prolonged QT Abnormal ECG Compared to ECG 09/30/2021 16:13:01 Left ventricular hypertrophy no longer present T-wave abnormality no longer present Electronically Signed On 04-18-23 14:13:25 [employer] by Abdoul Rich
[2023-04-18] MEDS ORDERED: HYDRALAZINE HCL 20 MG/ML VIAL IV PRN (16:22)
[2023-04-18] MEDS: HYDRALAZINE HCL 25 MG TABLET ONE (16:53)
[2023-04-18] MEDS: carvediloL 25 MG TAB ONE (16:53)
[2023-04-18] MEDS: carvediloL 25 MG TAB PO SCH (17:00)
[2023-04-18] MEDS: HYDRALAZINE HCL 25 MG TABLET PO SCH (17:00)
[2023-04-18] MEDS: FAMOTIDINE 20 MG TAB PO PRN (17:00)
[2023-04-18] MEDS: NIFEDIPINE XL 60 MG TABLET PO SCH (21:37)
[2023-04-19 04:43] LABS: Absolute Lymphocytes (CBC) 2.3 K/uL (0.7-4.9); Basophils % 0.6 % (0-1.3); Hematocrit 29.6 % (39.6-49.0); Lymphocytes % 27.2 % (15.3-44.8); MPV 7.6 fL (7.6-11.3); Platelets 178 thou/uL (152-406); RBC Red Blood Cell Count 3.26 M/uL (4.33-5.43)
[2023-04-19 04:45] LABS: Anion Gap 9.8 mEq/L (5.0-15.0); Magnesium 2.6 mg/dL (1.6-2.4); Phosphorus 4.9 mg/dL (2.5-4.9); Potassium 3.8 mEq/L (3.5-5.1)
--- NOTE | 2023-04-19 08:30 | P.PN ---
Date of Service: 04/19/23 Chief Complaint: CKD, colitis Subjective: Patient sitting up in bed, in no apparent distress. No acute events overnight. No nausea or vomiting. Reports good appetite. He reports still having liquid diarrhea multiple times per day. Physical Examination Temp Pulse Resp BP Pulse Ox 96.9 F 69 16 150/86 H 95 04/19/23 04:00 04/19/23 04:00 04/19/23 04:00 04/19/23 04:00 04/19/23 04:00 General: Alert, In no apparent distress, Oriented x3 HEENT: Atraumatic, Normocephalic Respiratory: Clear to auscultation bilaterally, Normal air movement Cardiovascular: Regular rate/rhythm Gastrointestinal: Normal bowel sounds, Soft and benign Integumentary: No rashes Neurological: Normal speech, Normal tone, Normal affect Laboratory Data - Reviewed Microbiology Data - Reviewed Imagings Data: - Reviewed Assessment and Plan Problem List Colitis Diabetes Mellitus type II Chronic Kidney Disease Hypertension Hyperlipidemia Suspected Infectious Colitis - Sudden onset of persistent nausea/vomiting. Vomiting improved, now patient reporting multiple episodes of liquid diarrhea. - CT abdomen pelvis 04/16: " Findings suggestive of segmental infectious or inflammatory colitis of the proximal sigmoid colon. No evidence of abnormal fluid collections or fistula formation." - Currently on Zosyn (started 04/16) - Blood cultures 04/16: no growth to date - Stool culture: pending - fecal leukocyte negative - ova and parasites: pending - Leukocytosis improving (WBC 18.4 -> 15.9 -> 8.5) - Afebrile Recommendations - Discontinued zosyn. Follow up with stool culture results. - Patient still reporting liquid diarrhea multiple times per day, consider use of antimotility agent such as loperamide. - Monitor CBC, BMP - renally dose medications. Nephrology following. - strict blood glucose control Case discussed with Juli Rodriguez
[2023-04-19] MEDS: POTASSIUM CL SA 10 MEQ TAB PO ONE (08:38)
[2023-04-19 13:11] VITALS: BP 167/87; TEMP 97.2
--- NOTE | 2023-04-19 16:38 | P.DS ---
Admission Date: 04/17/23 Discharge Date: 04/19/23 Disposition: ROUTINE DISCHARGE Discharge Condition: FAIR Reason for Admission: CKD, colitis Brief History of Present Illness: Kaylie Arevalo is a 57-year-old male with past medical history of hypertension, hyperlipidemia, diabetes mellitusNIDDM, anxiety, and COVID who presented to the ED with complaints of abdominal cramping, vomiting, chills. reports patient has chronic kidney disease which started with COVID in 2020. 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 While in the ED he was given Zosyn, Phenergan, and 1 L normal saline. Initial vitals BP 167 / 85; Pulse 107; Resp 16; Temp 98; Pulse Ox 100% Laboratory evaluations sodium 133, potassium 4.4, BUN/creatinine 76/4.9, GFR 13, serum glucose 410, lipase 184, white blood cells 18.4, bicarb 18 CT abdomen pelvis reports "Findings suggestive of segmental infectious or inflammatory colitis of the proximal sigmoid colon. No evidence of abnormal fluid collections or fistula formation" Patient was admitted for further management. Hospital Course: Diagnosis Sepsis Secondary to enteritis Septic shock vs hypovolemic shock Colitis of the proximal sigmoid Leukocytosis Fluid volume deficit secondary to vomiting and diarrhea Acute on Chronic Kidney Disease Diabetes Mellitus NIDDM with hyperglycemia Hx HTN/HLD Small left inguinal hernia Patient admitted to the medical floor and the following medical problems addressed Sepsis Secondary to enteritis Septic shock vs hypovolemic shock Colitis of the proximal sigmoid Leukocytosis Fluid volume deficit secondary to vomiting and diarrhea Initial sirs criteria WBC 18.4, lipase 184, bicarb 18, HR 107 WBC 15.9- improved, bicarb 21, afebrile, VSS Patient treated with aggressive IV fluid hydration and IV Zosyn Blood cultures yielded no growth, stool fecal leukocytes was negative. Leukocytosis resolved rapidly within 48 hours. Patient clinical symptoms significantly improved, had a couple of diarrhea episodes today. States he feels much better, he is tolerating diet and he is ambulating. Infectious disease evaluated patient and patient's symptoms deemed related to enterocolitis. He is clinically stable for discharge. He is discharged with oral ciprofloxacin and Flagyl. Chronic Kidney Disease stage IV Patient seen and evaluated by nephrology. He has a diagnosis of chronic kidney disease secondary to FSGS. Serum creatinine did not improve management IV hydration patient is likely at [facility]. He is discharged to follow-up with nephrology. Diabetes Mellitus NIDDM with hyperglycemia Managed with insulin sliding scale Hx HTN/HLD Resume home medications Left inguinal hernia Outpatient follow-up. Vital Signs/Physical Exam: Temp Pulse Resp BP Pulse Ox 97.2 F 75 16 167/87 H 96 04/19/23 12:00 04/19/23 12:00 04/19/23 12:00 04/19/23 12:00 04/19/23 12:00 General: Alert, In no apparent distress, Oriented x3, Obese HEENT: Mucous membr. moist/pink, Sclerae nonicteric Neck: Supple, JVD not distended Respiratory: Clear to auscultation bilaterally, Normal air movement Cardiovascular: No edema, Regular rate/rhythm, Normal S1 S2 Gastrointestinal: Normal bowel sounds, Soft and benign, Non-distended, No tender ness Musculoskeletal: No swelling Integumentary: No rashes, No cyanosis Neurological: Normal strength at 5/5 x4 extr Laboratory Data at Discharge: WBC 8.50 thou/uL (4.3-10.9) 04/19/23 04:07 Hgb 10.3 g/dL (13.6-17.9) L D 04/19/23 04:07 Hct 29.6 % (39.6-49.0) L 04/19/23 04:07 Plt Count 178 thou/uL (152-406) D 04/19/23 04:07 PT 11.5 SECONDS (9.5-12.5) 04/17/23 11:00 INR 1.05 04/17/23 11:00 APTT 29.3 SECONDS (24.3-36.9) 04/17/23 11:00 Sodium 138 mEq/L (136-145) 04/19/23 04:07 Potassium 3.8 mEq/L (3.5-5.1) 04/19/23 04:07 BUN 64 mg/dL (7-18) H 04/19/23 04:07 Creatinine 4.26 mg/dL (0.70-1.30) H 04/19/23 04:07 Glucose 126 mg/dL (74-106) H 04/19/23 04:07 Phosphorus 4.9 mg/dL (2.5-4.9) 04/19/23 04:07 Magnesium 2.6 mg/dL (1.6-2.4) H 04/19/23 04:07 Total Bilirubin 0.5 mg/dL (0.2-1.0) 04/17/23 08:10 AST 11 U/L (15-37) L 04/17/23 08:10 ALT 24 U/L (16-61) 04/17/23 08:10 Alkaline Phosphatase 139 U/L (45-117) H 04/17/23 08:10 Lipase 184 U/L (13-75) H 04/17/23 08:10 Home Medications: Carvedilol [Coreg] 25 mg PO BID 04/17/23 Dulaglutide [Trulicity] 1.5 mg SQ Q7D 04/17/23 Escitalopram [Lexapro*] 20 mg PO DAILY 04/17/23 Famotidine [Pepcid] 20 mg PO DAILY PRN 04/17/23 Furosemide [Lasix] 40 mg PO BID 04/17/23 Hydralazine [Apresoline*] 50 mg PO BID 04/17/23 Insulin Glargine,Hum.rec.anlog [Lantus] 35 unit SQ DAILY AFTER SUPPER 04/17/23 Losartan Potassium 50 mg PO BID 04/17/23 Nifedipine Xl [Procardia XL*] 60 mg PO BID 04/17/23 Ciprofloxacin HCl [Cipro] 500 mg PO BID #10 tab 04/19/23 Lactobacillus Acidophilus [Acidophilus Lactobacilli] 1 each PO TID #90 tab 04/19/23 metroNIDAZOLE [Flagyl] 500 mg PO Q8H #15 tab 04/19/23 New Medications: Lactobacillus Acidophilus [Acidophilus Lactobacilli] 1 each PO TID #90 tab Ciprofloxacin HCl [Cipro] 500 mg PO BID #10 tab metroNIDAZOLE [Flagyl] 500 mg PO Q8H #15 tab Diet: Renal Activity: Ad flora Followup: Rangel Galvez [ACTIVE - CAN ADMIT] - 1-2 Weeks Alexys Castro PA [Primary Care Provider] - Time spent managing pt's care (in minutes): 33
[2023-04-19] MEDS ORDERED: INSULIN GLARGINE 100 UNIT/ML SQ SCH (17:30)
--- NOTE | 2023-04-19 19:34 | P.PN ---
Date of Service: 04/19/23 Vital Signs Temp Pulse Resp BP Pulse Ox 97.2 F 75 16 167/87 H 96 04/19/23 12:00 04/19/23 12:00 04/19/23 12:00 04/19/23 12:00 04/19/23 12:00 Microbiology Results 04/17/23 10:45 Blood - Blood Aerobic Blood Culture - Preliminary No growth in 24 hours. 04/17/23 10:45 Blood - Blood Anaerobic Blood Culture - Preliminary No growth in 24 hours. 04/17/23 11:00 Blood - Blood Aerobic Blood Culture - Preliminary No growth in 24 hours. 04/17/23 11:00 Blood - Blood Anaerobic Blood Culture - Preliminary No growth in 24 hours. Assessment/ Plan: Nephrology No dyspnea No chest pain Feeling better No acute events overnight Vitals, medications, blood work and imaging reviewed in the chart General: In no apparent distress, Oriented x3, Cooperative HEENT: Atraumatic Neck: Supple Respiratory: Normal air movement Cardiovascular: No edema, Regular rate/rhythm Gastrointestinal: Soft and benign, Non-distended Musculoskeletal: No clubbing, No contractures Integumentary: No rashes, No cyanosis Neurological: Normal speech Blood work reviewed in the chart. Imagings Data: EXAM DESCRIPTION: CT - Abdomen Pelvis Wo Contrast - 04/17/2023 9:33 am CLINICAL HISTORY: ABD PAIN COMPARISON: CT ABD PELVIS W WO CONTRAST dated 10/01/2002 TECHNIQUE: Thin cut axial CT imaging of the abdomen and pelvis was performed without IV contrast. Multiplanar reformats were generated and reviewed. All CT scans are performed using dose optimization technique as appropriate and may include automated exposure control or mA/KV adjustment according to patient size. FINDINGS: No suspicious findings in the lung bases. The liver, spleen, adrenal glands, and pancreas show no suspicious findings. Gallbladder and biliary tree are also without suspicious finding. Symmetric renal contour, without suspicious parenchymal findings within limits of noncontrast technique. No evidence of radiopaque calculi or hydroureteronephrosis. No dilated bowel loops. Short-segment of mild wall prominence and adjacent fat stranding along the proximal sigmoid colon. See series 202 images 30 through 40. No free air, free fluid, or abnormal fluid collections. Small left inguinal hernia containing fat. No suspicious mass or bulky lymphadenopathy. The urinary bladder is without significant finding. No suspicious bony findings. IMPRESSION: Findings suggestive of segmental infectious or inflammatory colitis of the proximal sigmoid colon. No evidence of abnormal fluid collections or fistula formation. Conclusions/Impression: CKD IV with Proteinuria Biopsy proven secondary FSGS -No NSAIDs -Continue IVF -PD planning in process as an outpt (Dr. Galvez) HTN with CKD -Continue Coreg -Continue Nifedipine and Hydralazine DM II with CKD -RISS Anemia in chronic illness -Monitor H&H Infectious Colitis -Continue Abx -Case reviewed with ID Case reviewed with Dr. Osorio Follow up with Dr. Galvez next week
[2023-04-20] MEDS ORDERED: LACTOBACILLUS/ACIDOPHILUS TAB PO SCH (09:00)
== END 2023-04-19 17:07 | disposition home or self-care (01) | DRG 871 ==
LOC: ER 07:47 → ERHOLD 12:26 → 4TH 15:52
PROVIDERS: ADMIT Internal Medicine; ATTEND Internal Medicine
DX: A41.9 Sepsis, unspecified organism (principal); R57.1 Hypovolemic shock; R65.21 Severe sepsis with septic shock; N18.4 Chronic kidney disease, stage 4 (severe); A09 Infectious gastroenteritis and colitis, unspecified; I12.9 Hypertensive chronic kidney disease with stage 1 through stage 4 chronic kidney disease, or unspecified chronic kidney disease; E11.22 Type 2 diabetes mellitus with diabetic chronic kidney disease; E11.65 Type 2 diabetes mellitus with hyperglycemia; D63.1 Anemia in chronic kidney disease; E78.00 Pure hypercholesterolemia, unspecified; K40.90 Unilateral inguinal hernia, without obstruction or gangrene, not specified as recurrent; K59.00 Constipation, unspecified; R33.9 Retention of urine, unspecified; Z86.16 Personal history of COVID-19; Z79.4 Long term (current) use of insulin; Z79.02 Long term (current) use of antithrombotics/antiplatelets; Z79.899 Other long term (current) drug therapy
CPT/HCPCS: 36415; 74176; 80048; 80053; 81001; 82947; 83605; 83690; 83735; 84100; 85025; 85610; 85730; 87040; 87045; 87046; 87177; 87209; 89055; 93005; 96361; 96365; 96372; 96375; 99285; J0360; J1644; J1815; J2405; J2543; J2550; J7030; J7050; J7120